=== PATIENT | male | born 1945 | race Caucasian/White ===

== ENCOUNTER 2018-07-10 11:44 | Outpatient (CLI) | payer MEDICARE, SELFPAY ==
[2018-07-10 12:47] LABS: Hemoglobin A1C 7.9 % (4.5-6.2)
== END 2018-07-10 12:04 ==
PROVIDERS: PCP Family Medicine; Visit Provider Family Medicine
DX: E11.9 Type 2 diabetes mellitus without complications (principal)
CPT/HCPCS: 36415; 83036

== ENCOUNTER 2018-07-19 13:37 | Emergency (ER) | payer MEDICARE, SELFPAY ==
--- NOTE | 2018-07-19 13:51 | NUR.NOTE ---
pt noticed redness in both eyes last night and states that they itch and burn. NOTE pt is poor historian
[2018-07-19 13:53] VITALS: BP 153/54; PULSE 79; RESP 16; TEMP 36.6; O2SAT 98
--- NOTE | 2018-07-19 17:00 | W.ED.GENAD ---
Discharge Plan Disposition Patient Disposition: HOME Discharge Details Chief Complaint: EyeProblem Clinical Impression: Conjunctivitis Primary Care Provider: Saeid Cotter ED Provider: Isabella [place] Home Meds and New Rx's Prescriptions: Continued ipratropium bromide 42 mcg (0.06 %) spray,non-aerosol 2 spray SERGIO TID PRN (Reason: postnasal drip) Qty: 15 RF: 2 multivitamin [Daily Multi-Vitamin] 1 EACH tablet 1 ea PO DAILY RF: 0 blood sugar diagnostic [Odeo Ultra Test] 1 EACH strip 1 ea Miscellaneous QID RF: 0 ascorbic acid (vitamin C) [Vitamin C] 500 MG tablet 500 mg PO DAILY RF: 0 simvastatin 20 MG tablet 20 mg PO DAILY RF: 0 ferrous sulfate 325 MG tablet 325 mg PO TID RF: 0 triamcinolone acetonide 60 ML lotion 1 lucita Topical QAM RF: 0 glucosamine sulfate 1,000 MG capsule 1,000 mg PO DAILY RF: 0 insulin syringe-needle U-100 [BD Insulin Syringe] 1 EACH syringe 1 unit Sub-Q DAILY RF: 0 pantoprazole [Protonix] [address] for susp in packet 40 mg PO DAILY RF: 0 lancing device with lancets [Odeo Delica Lanc Device] 1 EACH kit 1 ea Miscellaneous QID RF: 0 triamcinolone acetonide 15 GM cream Topical BID Qty: 30 RF: 3 furosemide [Lasix] 40 MG tablet 1 tab PO DAILY Qty: 90 RF: 4 lisinopril 10 MG tablet 10 mg PO DAILY RF: 0 aspirin 81 MG tablet,chewable 81 mg PO DAILY RF: 0 insulin glargine [Lantus U-100 Insulin] 100 UNIT/1 ML solution 60 - 70 unit SQ HS Qty: 3 RF: 4 metoprolol tartrate 25 MG tablet 0.5 tab PO BID Qty: 90 RF: 4 allopurinol 100 MG tablet 100 mg PO BID Qty: 180 RF: 4 cholecalciferol (vitamin D3) 1,000 UNIT tablet 1 tab PO DAILY RF: 0 Discharge Instructions Instructions: Tobramycin (Into the eye), Conjunctivitis (ED) Additional Instructions: Please return immediately to the emergency department if you develop any new or worsening symptoms or if you become otherwise concerned. It is extremely important that you make an appointment to be seen by your customer service correspondence clerk on Saturday in follow-up this visit. Referrals: Dionisio,Anthony, MD [ [facility] STAFF PHYSICIAN] - Saeid Cotter MD [Primary Care Provider] - Discharge Data Discharge Date/Time-TO BE ENTERED AT DEPARTURE: 07/19/18 18:01 Medical Decision Making Edward Enamorado is a 23-year-old man with history of multiple medical problems presenting to the emergency department with by lateral eye redness, burning, discharge without vision changes. On exam patient is well and nontoxic appearing. There is bilateral conjunctival injection, fall amount of yellow discharge bilaterally, pupils equal and reactive to light and accommodation, normal extraocular movements, normal periorbital exam. Concern for bacterial conjunctivitis. Patient has had bilateral lens replacement several years ago. Does not wear contact lenses. Plan for tobramycin, outpatient follow-up with ophthalmology. Exam/history is not consistent with glaucoma, endophthalmitis, sepsis, meningitis, other acute emergent life/vision threatening process. I had a lengthy discussion with patient regarding home care, return to emergency department precautions, and importance of outpatient follow-up on Saturday with his customer service correspondence clerk. He verbalizes understanding of the plan and is amenable. Medical Records Medical records reviewed: Yes I reviewed the patient's medical records. HPI General Mode of arrival: ambulatory. Date/Time Provider Initiated Documentation: 07/19/18 13:56. Limitations to Documentation: no limitations. Information obtained by: patient, family, RN notes reviewed and old records reviewed. HPI Narrative: Edward Enamorado is a 3-year-old man with history of hypertension, coronary artery disease, diabetes presenting to the emergency department with eye redness since yesterday. Patient reports that he noticed his eyes seemed red yesterday and quite watery. He has had continued discharge from both eyes since last night. He occasionally has burning and itching of the surface of his eyes, and feels as if he might have a foreign body in both eyes at times. Patient reports no deep eye pain or headache. Patient does not think that his vision has changed, although he typically wears glasses and does not have them with him currently. Patient denies any activity that would put him at risk for foreign body to the eye, and does not actually think that he has a foreign body as his eyes were red with discharge prior to that sensation beginning. Patient reports that he had both lenses replaced several years ago. He does not wear contacts. Related Data Home Medications Medication Instructions Recorded Confirmed ascorbic acid (vitamin C) [Vitamin 500 mg PO DAILY 09/30/12 07/21/16 C] blood sugar diagnostic [OneTouch strip 09/30/12 07/21/16 Ultra Test] ferrous sulfate 325 mg PO TID 09/30/12 07/21/16 glucosamine sulfate 1,000 mg PO DAILY 09/30/12 07/21/16 insulin syringe-needle U-100 [BD 09/30/12 07/21/16 Insulin Syringe] lancing device with lancets kit 09/30/12 07[facility] multivitamin [Daily Multi-Vitamin] 1 ea PO DAILY 09/30/12 07/21/16 pantoprazole [Protonix] 40 mg PO DAILY packet 09/30/12 03/12/15 simvastatin 20 mg PO DAILY tab-cap 09/30/12 07/21/16 triamcinolone acetonide 1 lucita TOPICAL QAM script 09/30/12 03/12/15 cholecalciferol (vitamin D3) 1 tab PO DAILY 01/19/14 07/21/16 triamcinolone acetonide 0 TOPICAL BID #30 g 09/26/15 furosemide [Lasix] 1 tab PO DAILY #90 tab 09/07/16 lisinopril 10 mg PO DAILY tab-cap 01/22/17 aspirin 81 mg PO DAILY tab-cap 05/23/17 insulin glargine [Lantus U-100 60 - 70 unit SQ HS #3 vial 08/16/17 Insulin] metoprolol tartrate 0.5 tab PO BID #90 tab-cap 08/20/17 allopurinol 100 mg PO BID #180 tab-cap 10/03/17 ipratropium bromide 42 mcg (0.06 2 spray SERGIO TID PRN #15 ml 07/10/18 07/10/18 %) nasal spray Previous Rx's Medication Instructions Recorded insulin glargine [Lantus U-100 60 - 70 unit SQ HS #3 vial 08/16/17 Insulin] metoprolol tartrate 0.5 tab PO BID #90 tab-cap 08/20/17 allopurinol 100 mg PO BID #180 tab-cap 10/03/17 ipratropium bromide 42 mcg (0.06 2 spray SERGIO TID PRN #15 ml 07/10/18 %) nasal spray Allergies Allergy/AdvReac Type Severity Reaction Status Date / Time No Known Drug Allergies Allergy Unverified 07/19/18 13:54 General Stated Complaint: EyeProblem NICK: 4 Review of Systems Review of Systems Constitutional: denies fevers Eyes: denies deep eye pain, vision changes, photophobia, reports superficial burning and itching of both eyes, discharge from both eyes ENT: denies facial pain, dental pain, sore throat Cardiovascular: denies chest pain Respiratory: denies SOB, cough GI: denies abdominal pain, vomiting, diarrhea : denies flank pain MSK: denies back pain, neck pain, arthralgias, myalgias Skin: denies rash Neuro: denies headaches, numbness, weakness PFSH Surgical History Extraction of cataract (01/05/11) PROCEDURES Family History Other Diabetes Essential hypertension Heart disease Social History Smoking/Tobacco Use Status: Former Tobacco Use Exam Narrative Exam Narrative: Constitutional: well and [id number], pleasant, conversing normally HENT: head atraumatic/normocephalic/normal inspection, mucous membranes moist, no facial edema Eyes: conjunctiva injected bilaterally, bilateral upper and lower lashes matted with crusting yellow discharge, PERRLA, EOMI, periorbital edema or tenderness, no periorbital skin changes Neck: no stridor, normal ROM, trachea midline Resp: normal work of breathing, LCTAB Cardio: normal rate, normal rhythm, no murmur appreciated Skin: warm, dry, normal color, no rash Neuro: alert, not altered, grossly non-focal, normal tone Psych: normal mood, normal affect, normal behavior Course Vital Signs Temperature 36.6 C 07/19/18 13:53 Pulse 79 07/19/18 13:53 Respiratory Rate 16 07/19/18 13:53 Blood Pressure 153/54 H 07/19/18 13:53 Pulse Oximetry 98 07/19/18 13:53 Temperature 36.6 C 07/19/18 13:53 Temperature Source Skin 07/19/18 13:53 Pulse 79 07/19/18 13:53 Respiratory Rate 16 07/19/18 13:53 Respiratory Effort 07/19/18 13:55 Blood Pressure 153/54 H 07/19/18 13:53 Blood Pressure Position Supine 07/19/18 13:53 Pulse Oximetry 98 07/19/18 13:53 Oxygen Delivery Method Room Air 07/19/18 13:53 Oxygen Flow Rate 0 07/19/18 13:53 Pain Level 3 07/19/18 13:53
--- NOTE | 2018-07-19 17:03 | ED.GENADUL_ITS ---
Discharge Plan Disposition Patient Disposition: HOME Discharge Details Chief Complaint: EyeProblem Clinical Impression: Conjunctivitis Primary Care Provider: Saeid Cotter ED Provider: [place] Home Meds and New Rx's Prescriptions: Continued ipratropium bromide 42 mcg (0.06 %) spray,non-aerosol 2 spray SERGIO TID PRN (Reason: postnasal drip) Qty: 15 RF: 2 multivitamin [Daily Multi-Vitamin] 1 EACH tablet 1 ea PO DAILY RF: 0 blood sugar diagnostic [Pegastech Ultra Test] 1 EACH strip 1 ea Miscellaneous QID RF: 0 ascorbic acid (vitamin C) [Vitamin C] 500 MG tablet 500 mg PO DAILY RF: 0 simvastatin 20 MG tablet 20 mg PO DAILY RF: 0 ferrous sulfate 325 MG tablet 325 mg PO TID RF: 0 triamcinolone acetonide 60 ML lotion 1 lucita Topical QAM RF: 0 glucosamine sulfate 1,000 MG capsule 1,000 mg PO DAILY RF: 0 insulin syringe-needle U-100 [BD Insulin Syringe] 1 EACH syringe 1 unit Sub-Q DAILY RF: 0 pantoprazole [Protonix] [address] for susp in packet 40 mg PO DAILY RF: 0 lancing device with lancets [Pegastech Delica Lanc Device] 1 EACH kit 1 ea Miscellaneous QID RF: 0 triamcinolone acetonide 15 GM cream Topical BID Qty: 30 RF: 3 furosemide [Lasix] 40 MG tablet 1 tab PO DAILY Qty: 90 RF: 4 lisinopril 10 MG tablet 10 mg PO DAILY RF: 0 aspirin 81 MG tablet,chewable 81 mg PO DAILY RF: 0 insulin glargine [Lantus U-100 Insulin] 100 UNIT/1 ML solution 60 - 70 unit SQ HS Qty: 3 RF: 4 metoprolol tartrate 25 MG tablet 0.5 tab PO BID Qty: 90 RF: 4 allopurinol 100 MG tablet 100 mg PO BID Qty: 180 RF: 4 cholecalciferol (vitamin D3) 1,000 UNIT tablet 1 tab PO DAILY RF: 0 Discharge Instructions Instructions: Tobramycin (Into the eye), Conjunctivitis (ED) Additional Instructions: Please return immediately to the emergency department if you develop any new or worsening symptoms or if you become otherwise concerned. It is extremely important that you make an appointment to be seen by your reservoir engineering manager on Saturday in follow-up this visit. Referrals: Dionisio,Anthony, MD [ [facility] STAFF PHYSICIAN] - Saeid Cotter MD [Primary Care Provider] - Discharge Data Discharge Date/Time-TO BE ENTERED AT DEPARTURE: 07/19/18 18:01 Medical Decision Making Edward Enamorado is a 23-year-old man with history of multiple medical problems presenting to the emergency department with by lateral eye redness, burning, discharge without vision changes. On exam patient is well and nontoxic appearing. There is bilateral conjunctival injection, fall amount of yellow discharge bilaterally, pupils equal and reactive to light and accommodation, normal extraocular movements, normal periorbital exam. Concern for bacterial conjunctivitis. Patient has had bilateral lens replacement several years ago. Does not wear contact lenses. Plan for tobramycin, outpatient follow-up with ophthalmology. Exam/history is not consistent with glaucoma, endophthalmitis, sepsis, meningitis, other acute emergent life/vision threatening process. I had a lengthy discussion with patient regarding home care, return to emergency department precautions, and importance of outpatient follow-up on Saturday with his reservoir engineering manager. He verbalizes understanding of the plan and is amenable. Medical Records Medical records reviewed: Yes I reviewed the patient's medical records. HPI General Mode of arrival: ambulatory . Date/Time Provider Initiated Documentation: 07/19/18 13:56 . Limitations to Documentation: no limitations . Information obtained by: patient, family, RN notes reviewed and old records reviewed . HPI Narrative: Edward Enamorado is a 3-year-old man with history of hypertension, coronary artery disease, diabetes presenting to the emergency department with eye redness since yesterday. Patient reports that he noticed his eyes seemed red yesterday and quite watery. He has had continued discharge from both eyes since last night. He occasionally has burning and itching of the surface of his eyes, and feels as if he might have a foreign body in both eyes at times. Patient reports no deep eye pain or headache. Patient does not think that his vision has changed, although he typically wears glasses and does not have them with him currently. Patient denies any activity that would put him at risk for foreign body to the eye, and does not actually think that he has a foreign body as his eyes were red with discharge prior to that sensation beginning. Patient reports that he had both lenses replaced several years ago. He does not wear contacts. Related Data Home Medications Medication Instructions Recorded Confirmed ascorbic acid (vitamin C) [Vitamin 500 mg PO DAILY 09/30/12 07/21/16 C] blood sugar diagnostic [OneTouch strip 09/30/12 07/21/16 Ultra Test] ferrous sulfate 325 mg PO TID 09/30/12 07/21/16 glucosamine sulfate 1,000 mg PO DAILY 09/30/12 07/21/16 insulin syringe-needle U-100 [BD 09/30/12 07/21/16 Insulin Syringe] lancing device with lancets kit 09/30/12 07/21/[facility] multivitamin [Daily Multi-Vitamin] 1 ea PO DAILY 09/30/12 07/21/16 pantoprazole [Protonix] 40 mg PO DAILY packet 09/30/12 03/12/15 simvastatin 20 mg PO DAILY tab-cap 09/30/12 07/21/16 triamcinolone acetonide 1 lucita TOPICAL QAM script 09/30/12 03/12/15 cholecalciferol (vitamin D3) 1 tab PO DAILY 01/19/14 07/21/16 triamcinolone acetonide 0 TOPICAL BID #30 g 09/26/15 furosemide [Lasix] 1 tab PO DAILY #90 tab 09/07/16 lisinopril 10 mg PO DAILY tab-cap 01/22/17 aspirin 81 mg PO DAILY tab-cap 05/23/17 insulin glargine [Lantus U-100 60 - 70 unit SQ HS #3 vial 08/16/17 Insulin] metoprolol tartrate 0.5 tab PO BID #90 tab-cap 08/20/17 allopurinol 100 mg PO BID #180 tab-cap 10/03/17 ipratropium bromide 42 mcg (0.06 2 spray SERGIO TID PRN #15 ml 07/10/18 07/10/18 %) nasal spray Previous Rx's Medication Instructions Recorded insulin glargine [Lantus U-100 60 - 70 unit SQ HS #3 vial 08/16/17 Insulin] metoprolol tartrate 0.5 tab PO BID #90 tab-cap 08/20/17 allopurinol 100 mg PO BID #180 tab-cap 10/03/17 ipratropium bromide 42 mcg (0.06 2 spray SERGIO TID PRN #15 ml 07/10/18 %) nasal spray Allergies Allergy/AdvReac Type Severity Reaction Status Date / Time No Known Drug Allergies Allergy Unverified 07/19/18 13:54 General Stated Complaint: EyeProblem NICK: 4 Review of Systems Review of Systems Constitutional: denies fevers Eyes: denies deep eye pain, vision changes, photophobia, reports superficial burning and itching of both eyes, discharge from both eyes ENT: denies facial pain, dental pain, sore throat Cardiovascular: denies chest pain Respiratory: denies SOB, cough GI: denies abdominal pain, vomiting, diarrhea : denies flank pain MSK: denies back pain, neck pain, arthralgias, myalgias Skin: denies rash Neuro: denies headaches, numbness, weakness PFSH Surgical History Extraction of cataract (01/05/11) PROCEDURES Family History Other Diabetes Essential hypertension Heart disease Social History Smoking/Tobacco Use Status: Former Tobacco Use Exam Narrative Exam Narrative: Constitutional: well and [id number], pleasant, conversing normally HENT: head atraumatic/normocephalic/normal inspection, mucous membranes moist, no facial edema Eyes: conjunctiva injected bilaterally, bilateral upper and lower lashes matted with crusting yellow discharge, PERRLA, EOMI, periorbital edema or tenderness, no periorbital skin changes Neck: no stridor, normal ROM, trachea midline Resp: normal work of breathing, LCTAB Cardio: normal rate, normal rhythm, no murmur appreciated Skin: warm, dry, normal color, no rash Neuro: alert, not altered, grossly non-focal, normal tone Psych: normal mood, normal affect, normal behavior Course Vital Signs Temperature 36.6 C 07/19/18 13:53 Pulse 79 07/19/18 13:53 Respiratory Rate 16 07/19/18 13:53 Blood Pressure 153/54 H 07/19/18 13:53 Pulse Oximetry 98 07/19/18 13:53 Temperature 36.6 C 07/19/18 13:53 Temperature Source Skin 07/19/18 13:53 Pulse 79 07/19/18 13:53 Respiratory Rate 16 07/19/18 13:53 Respiratory Effort 07/19/18 13:55 Blood Pressure 153/54 H 07/19/18 13:53 Blood Pressure Position Supine 07/19/18 13:53 Pulse Oximetry 98 07/19/18 13:53 Oxygen Delivery Method Room Air 07/19/18 13:53 Oxygen Flow Rate 0 07/19/18 13:53 Pain Level 3 07/19/18 13:53
== END 2018-07-19 18:01 | disposition home or self-care (01) ==
PROVIDERS: Emergency Provider Student in an Organized Health Care Education/Training Program; PCP Family Medicine
DX: H10.33 Unspecified acute conjunctivitis, bilateral (principal); J44.9 Chronic obstructive pulmonary disease, unspecified; Z87.891 Personal history of nicotine dependence; E11.9 Type 2 diabetes mellitus without complications; Z79.1 Long term (current) use of non-steroidal anti-inflammatories (NSAID); I10 Essential (primary) hypertension
CPT/HCPCS: 99283

== ENCOUNTER 2019-05-26 01:12 | Outpatient (CLI) | payer OTHER, SELFPAY ==
--- NOTE | 2019-05-26 10:35 | DI.US_ITS ---
APPROVED REPORT EXAM: Comprehensive 2D, Doppler, and color-flow Echocardiogram Patient Location: Out-Patient Rubbish Collection Supervisor: Shanika Cason RDCS (AE) Rhythm: NSR Indications: pulmonary htn i27.9 encounter for screening for malignant neoplasm of colon. z12.11 Conclusion Left Ventricle : The left ventricle is normal. Left ventricular systolic function is normal. Severe l eft ventricular hypertrophy. There is normal LV segmental wall motion. There is grade 2 diastolic dy sfunction. LVEF is estimated to be 55-60%. Right Ventricle : Right ventricle is mildly dilated. Right ventricular systolic function appears low normal. Atria : Left atrium is moderately dilated. Right atrium is moderately dilated. Aortic Valve : There is a bioprosthetic aortic valve which appears to be functioning normally (mean g radient 21 mmHg). There is no aortic valvular stenosis. No aortic regurgitation is present. Mitral Valve : Severe mitral annular calcification. Mitral valve leaflets are moderately thickened. M ild mitral regurgitation. Mild to moderate mitral stenosis (Mean gradient 13mmhg, MVA PHT 2.6cm2) Tricuspid Valve : Tricuspid valve is not well visualized. Moderate tricuspid regurgitation. Great Vessels : The IVC is normal is mildly dilated, but collapses >50% with inspiration. Estimated RVSP is 34-42 mmHg. Echocardiogram dated 07/23/2016: The patient's mitral stenosis appears slightly worsened. It is diffic ult to get an accurate mitral valve area with a concomitant bioprosthetic valve. Mean gradient is 13 mmHg at a heart rate of 80 bpm. Wall motion Left Ventricle The left ventricle is normal. Left ventricular systolic function is normal. Severe left ventricular h ypertrophy. There is normal LV segmental wall motion. There is grade 2 diastolic dysfunction. LVEF is estimated to be 55-60%. Right Ventricle Right ventricle is mildly dilated. Right ventricular systolic function appears low normal. Atria Left atrium is moderately dilated. Right atrium is moderately dilated. Aortic Valve There is a bioprosthetic aortic valve which appears to be functioning normally. There is no aortic va lvular stenosis. No aortic regurgitation is present. Mitral Valve Severe mitral annular calcification. Mitral valve leaflets are moderately thickened. Mild to moderate mitral stenosis (Mean gradient 13mmhg, MVA PHT 2.6cm2) Mild mitral regurgitation. Tricuspid Valve Tricuspid valve is not well visualized. Moderate tricuspid regurgitation. Pulmonic Valve Pulmonic valve is not well visualized. Great Vessels Not well visualized. The ascending aorta size is normal. The IVC is normal is mildly dilated, but col lapses >50% with inspiration. Estimated RVSP is 34-42 mmHg. Pericardium There is no pericardial effusion. 2D Dimensions IVSd 2.00 cm M: 0.6-1.2 LV EDV A2C 120.10 mL PWd 1.50 cm M: 0.6 - 1.2 LV EDV A4C 100.00 mL LVDd 4.80 cm M: 4.2 - 5.8 LA Volume Index A4C 53.58 mL/m2 LVDs 3.65 cm M: 2.5 - 4.0 LA Area A4C 31.26 cm2 RA Area A4C 24.59 cm2 EF AP4 53.80 % LVOT 1.85 cm (M/F) 1.5-2.5 EF AP2 55.87 % Ascending Aorta 3.39 cm M: 2.6 - 3.4 EF BP 55.16 % LVEF (Teich) 47.52 % LVEF (Mahmood's) 55.16 % M: 52 - 72 LV Volume 81.23 mL M: 62 - 150 LV Volume Index 36.10 mL/m2 M: 34 - 74 FS 23.85 % LV Diastology MED E' 0.08 (>0.07 m/s) LV E/e MED 32.65 (<14) LAT E' 0.08 (>0.1 m/s) LV E/e LAT 34.00 (<14) Aortic Valve LVOT Area 2.75 cm2 LVOT Peak Shlomo. 1.30 m/s LVOT Mean Shlomo. 1.04 m/s LVOT Peak Gr. 7.25 mmHg PHIL Vmax Index 0.57 cm2/m2 LVOT Mean Gr. 4.60 mmHg LVOT VTI 0.30 m PHIL Mean Shlomo. Index 0.58 cm2/m2 AoV Peak Shlomo. 2.88 (0.5-1.3 m/s) AoV Mean Shlomo. 2.19 m/s AO Peak GR. 33.28 mmHg AO Mean GR. 21.19 (<5 mmHg) VTI Ratio 0.50 PHIL (VTI) 1.38 (2.5-4.5 cm2) PHIL (VTI) Index 0.61 cm/m2 Mitral Valve MV E Max Shlomo. 2.69 (0.4-1.3 m/s) MVA VTI 2.69 (4.0-6.0 cm2) MV Peak Gr. 22.64 mmHg MV Mean Gr. 12.84 (<2mmHg) MVA PHT 2.56 cm2 Tricuspid Valve TR P. Velocity 2.92 m/s TV Regurg Vmax 2.92 m/s RAP Estimate 8.00 mmHg RVSP 42.00 mmHg TR P. Gradient 34.00 mmHg
== END 2019-05-26 01:32 ==
PROVIDERS: PCP Family Medicine; Visit Provider Family Medicine
DX: I27.0 Primary pulmonary hypertension (principal); I50.1 Left ventricular failure, unspecified; I51.7 Cardiomegaly; I34.2 Nonrheumatic mitral (valve) stenosis; Z95.2 Presence of prosthetic heart valve
CPT/HCPCS: 93306

== ENCOUNTER → 2019-06-18 10:33 | Outpatient (BNVA) | payer MEDICARE, SELFPAY | PROVIDERS: PCP Family Medicine; Referring Provider Family Medicine; Visit Provider Internal Medicine Cardiovascular Disease | DX: I27.9 Pulmonary heart disease, unspecified (principal); Z95.2 Presence of prosthetic heart valve; I10 Essential (primary) hypertension; I51.89 Other ill-defined heart diseases; E78.5 Hyperlipidemia, unspecified | CPT/HCPCS: 99204; 99215 ==

== ENCOUNTER → 2019-12-15 10:45 | Outpatient (BNVA) | payer MEDICARE, SELFPAY | PROVIDERS: PCP Family Medicine; Referring Provider Family Medicine; Visit Provider Internal Medicine Cardiovascular Disease | DX: G47.33 Obstructive sleep apnea (adult) (pediatric) (principal); Z95.2 Presence of prosthetic heart valve; I48.92 Unspecified atrial flutter; I27.9 Pulmonary heart disease, unspecified; I12.9 Hypertensive chronic kidney disease with stage 1 through stage 4 chronic kidney disease, or unspecified chronic kidney disease; N18.3 Chronic kidney disease, stage 3 (moderate) | CPT/HCPCS: 99214 ==

== ENCOUNTER → 2020-06-07 09:21 | Outpatient (BNVA) | payer MEDICARE, SELFPAY | PROVIDERS: PCP Nurse Practitioner; Referring Provider Family Medicine; Visit Provider Internal Medicine Cardiovascular Disease | DX: I48.0 Paroxysmal atrial fibrillation (principal); E11.22 Type 2 diabetes mellitus with diabetic chronic kidney disease; N18.30 Chronic kidney disease, stage 3 unspecified; Z79.4 Long term (current) use of insulin; I65.29 Occlusion and stenosis of unspecified carotid artery; I12.9 Hypertensive chronic kidney disease with stage 1 through stage 4 chronic kidney disease, or unspecified chronic kidney disease; Z01.810 Encounter for preprocedural cardiovascular examination; I08.0 Rheumatic disorders of both mitral and aortic valves | CPT/HCPCS: 99214 ==

== ENCOUNTER → 2020-06-28 13:52 | Outpatient (BNVA) | payer MEDICARE, SELFPAY | PROVIDERS: PCP Nurse Practitioner; Referring Provider Nurse Practitioner; Visit Provider Surgery | DX: D50.9 Iron deficiency anemia, unspecified (principal); E11.22 Type 2 diabetes mellitus with diabetic chronic kidney disease; N18.30 Chronic kidney disease, stage 3 unspecified; I12.9 Hypertensive chronic kidney disease with stage 1 through stage 4 chronic kidney disease, or unspecified chronic kidney disease | CPT/HCPCS: 99203; 99215 ==

== ENCOUNTER 2020-10-04 22:29 | Inpatient (IN) | payer OTHER, SELFPAY ==
[2020-10-04 22:35] VITALS: BP 135/64; PULSE 82; RESP 18; TEMP 36.8; O2SAT 100
--- NOTE | 2020-10-04 23:00 | DI.CT_ITS ---
EXAM: CT ABDOMEN PELVIS WO CLINICAL HISTORY: diarrhea for 3 mths, with bleeding, concern for CA. TECHNIQUE: Imaging Protocol: Axial computed tomography images with coronal and sagittal reformatted images were created and reviewed CONTRAST MATERIAL: Intravenous: none Oral: None COMPARISON: CT CHEST ABD PELVIS WO CONTRAST from 07/21/2016 FINDINGS: VISUALIZED LUNG BASES: There is stranding and some infiltrate in the right lung base which was not ev ident in 2017. Visualized left lung bases relatively clear.. ABDOMEN: There is no ascites. LIVER: There are no obvious focal hepatic lesions evident of this noninfused study. Pneumobilia is n oted in the left hepatic lobe. GALLBLADDER/BILIARY: Gallbladder surgically absent. CBD diameter upper normal. PANCREAS: No evidence of pancreatic mass nor dilatation of the pancreatic duct. SPLEEN: Spleen size is normal. Small hypodensity in the spleen is unchanged from 2017 either represe nts a small cyst or hemangioma. ADRENALS: There are no significant adrenal masses. KIDNEYS:No cysts evident. No solid renal masses. No calculi nor hydronephrosis. . ABDOMINAL AORTA: Abdominal aorta is not enlarged. LYMPH NODES: There is no retroperitoneal nor paraaortic adenopathy. ABDOMINAL WALL/GI: No evidence of significant anterior abdominal wall hernia. PELVIS: LYMPH NODES: There is no intrapelvic nor inguinal adenopathy. GI: There is a long area of narrowing in the sigmoid approximately 7-8 cm length with dilatation of t he colon above this level consistent with partial obstruction. This is either related to neoplasm or sequelae of the extensive sigmoid diverticulosis which was evident on the 2017 study. Possibly a co mbination of both.There is no gas in the adjacent nondistended urinary bladder to suggest fistulous c ommunication.The appendix is not easily identified. No obvious appendicitis. URINARY BLADDER: No calculi nor obvious masses evident REPRODUCTIVE: Prostate slightly enlarged. OSSEOUS: No significant osseous lesions. IMPRESSION: 1. The main finding here is in the sigmoid where there is a 7-8 cm segment of circumferential wall th ickening which is associated with incomplete obstruction at this level. First consideration is to ru le out neoplasm at this level. Other considerations is sequelae of chronic severe diverticulosis at this level. Possibly combination of both. Appropriate referral recommended for colonoscopy. 2. Gallbladder surgically absent. Pneumobilia is evident in the left hepatic lobe. Correlation with any prior ERCP recommended. 3. Right lung base findings which were not evident on the 2017 study. RADIATION DOSE DELIVERED: 1,016.67mGy.cm Total DLP DATA REPOSITORY: All CT scans at this facility are submitted to the National Radiology Data Registry (NRDR) Dose Index Registry (DIR) with the [employer] ([employer]). RADIATION OPTIMIZATION: All CT scans at this facility use at least one of these dose optimization te chniques: automated exposure control; mA and/or kV adjustment per patient size (includes targeted exa ms where dose is matched to clinical indication); or iterative reconstruction.
[2020-10-04 23:16] LABS: Abs Immature Grans 0.05 10^3/uL (0.0-0.06); Absolute Basophil Count 0.04 10^3/uL (0.0-0.2); Absolute Eosinophil Count 0.95 10^3/uL (0.0-0.7); Absolute Lymphocyte Count 1.13 10^3/uL (1.2-3.4); Absolute Monocyte Count 0.62 10^3/uL (0.1-0.8); Absolute Neutrophil Count 6.21 10^3/uL (1.2-6.7); Basophils % 0.4; Eosinophils % 10.6; HCT 30.8 % (40.0-50.0); HGB 9.8 g/dL (13.5-17.5); Immature Grans % 0.6; Lymphocytes % 12.6; MCH 30.3 pg (27.0-33.0); MCHC 31.8 % (32.0-36.0); MCV 95.4 fL (80-95); MPV 11.7 fL (8.0-11.0); Monocytes % 6.9; Neutrophils % 68.9; Nucleated RBC 0 %; Platelet Count 162 10^3/uL (130-400); RBC 3.23 10^6/uL (4.36-5.78); RDW 15.7 % (11.8-14.1); RDW-SD 54.4 fL
[2020-10-04] MEDS: Normal Saline 500 ML IV (23:30)
[2020-10-04 23:32] LABS: ALT 26 U/L (16-63); AST 19 U/L (15-37); Albumin 3.3 g/dL (3.4-5.0); Alkaline Phosphatase 99 U/L (46-116); Anion Gap 11.3 mmol/L (3-11); Bilirubin, Total 0.3 mg/dL (0.2-1.0); CO2 20.7 mmol/L (21.0-32.0); Calcium 9.1 mg/dL (8.5-10.1); Chloride 108 mmol/L (98-107); Estimated GFR 20.45 (mL/min/1.73m2); Glucose 234 mg/dL (74-106); Potassium 5.4 mmol/L (3.5-5.1); Sodium 140 mmol/L (136-145); Total Protein 7.6 g/dL (6.4-8.2)
[2020-10-04 23:33] LABS: Iron 33 ug/dL (65-175); Total Iron Binding Capacity 241 ug/dL (250-450); Transferrin Sat 14 % (20-55)
[2020-10-04 23:34] LABS: BUN 97 mg/dL (7-18)
--- NOTE | 2020-10-04 23:57 | DI.VRAD_ITS ---
PROCEDURE INFORMATION: Exam: CT Abdomen And Pelvis Without Contrast Exam date and time: 10/04/2020 11:22 PM Age: 75 years old Clinical indication: Other: Diarrhea for 3 mths, with bleeding, concern for CA TECHNIQUE: Imaging protocol: Computed tomography of the abdomen and pelvis without contrast. Total images: 1371 Radiation optimization: All CT scans at this facility use at least one of these dose optimization techniques: automated exposure control; mA and/or kV adjustment per patient size (includes targeted exams where dose is matched to clinical indication); or iterative reconstruction. COMPARISON: CT CHEST ABD PELVIS WO CONTRAST 07/21/2016 6:06 PM FINDINGS: Lungs: Bandlike atelectasis or scarring in the right lung base with posterior basilar pleural thickening and trace pleural fluid. Heart: Mild cardiomegaly. Severe calcification of the mitral annulus noted. Prior median sternotomy. Mediastinal space: Small hiatal hernia. The mid and distal stomach are grossly normal. Liver: Normal contour. No mass lesions. No intrahepatic biliary ductal dilatation. Gallbladder and bile ducts: Cholecystectomy. Nondilated bile ducts for age. Pancreas: Moderate pancreatic atrophy without acute abnormality. No pancreatic ductal dilatation. Spleen: 4 mm probable cyst in the central liver is unchanged from 2017 and does not require further evaluation. The spleen is otherwise unremarkable. Adrenal glands: Normal. No adrenal mass. Kidneys and ureters: Mild bilateral symmetrical perinephric stranding, nonspecific. This is unchanged and may relate to chronic perirenal scarring. Mild bilateral renal cortical thinning suggesting chronic renal disease. Extrarenal pelvis configuration noted bilaterally. No hydronephrosis or hydroureter. No urinary tract stones are identified. Stomach and bowel: The small bowel is nondilated with no gross abnormality. Large amount of stool throughout the colon, with a 6 cm segment of wall thickening in the mid to proximal sigmoid colon with obliteration of the colonic lumen currently, concerning for obstructive colonic neoplasm. There is gas and stool present distal to the segment, favoring incomplete obstruction at this point. GI consultation and colonoscopy evaluation recommended. No evidence of perforation or abscess. There is mild sigmoid diverticulosis without focal changes of diverticulitis. There is mild colonic wall thickening and adjacent stranding just proximal to the colonic mass which may indicate an element of colitis. Appendix: The appendix is normal in caliber and demonstrates no evidence of appendicitis. Intraperitoneal space: No free fluid or air. Vasculature: Moderate atherosclerotic aortoiliac calcification without aneurysm. Lymph nodes: No adenopathy. Urinary bladder: Unremarkable as visualized. Reproductive: Unremarkable as visualized. Bones/joints: No acute osseous abnormalities. Osteopenia. Soft tissues: Unremarkable. IMPRESSION: 1. There is a 6 cm segment of masslike colonic wall thickening in the mid to proximal sigmoid colon highly suspicious for colon carcinoma. Wall thickening related to colitis in this segment is considered less likely. No evidence of perforation or abscess. GI consultation and colonoscopy evaluation recommended. 2. Large amount of stool distributed throughout the colon proximal to the masslike segment concerning for partial colonic obstruction. 3. Mild wall thickening and adjacent stranding involving the descending colon proximal to the mass may represent an element of colitis. 4. Mild distal colonic diverticulosis without focal changes of diverticulitis. 5. Additional non-emergent findings detailed above. Dictated and Authenticated by: Saeid Russell MD. Ordering:ALEX Degroot MD
[2020-10-05] VITALS (12 sets, daily range): BP systolic 101–131; BP diastolic 46–70; PULSE 74–115; RESP 16–24; TEMP 36.2–37; O2SAT 97–100
--- NOTE | 2020-10-05 | DI.US_ITS ---
EXAM: US RENAL CLINICAL HISTORY: FLOR TECHNIQUE: Ultrasound of both kidneys performed using standard protocol. COMPARISON: No exams were available for comparison FINDINGS: RIGHT KIDNEY: Measures 11.5 cm in length. No cysts evident. Mild uniform cortical thinning and slightly decreased c orticomedullary differentiation. No solid renal masses. No intrarenal calculi nor hydronephrosis. LEFT KIDNEY: Measures 11.1 cm in length. No cysts evident. There is also mild uniform cortical thinning and sligh tly decreased corticomedullary differentiation, similar to the opposite side. No intrarenal calculi nor hydonephrosis. URINARY BLADDER: Prevoid volume is 146 cc Postvoid volume is 0 cc Bladder wall is diffusely thickened. Measurement is 7 millimeters. No evidence of obvious focal bladder mass nor diverticuli. Ureterovesical jets: Not identified. IMPRESSION: 1. Both kidneys exhibit normal size but exhibit mild uniform cortical thinning. Mild decreased moe icomedullary differentiation. However, there are no focal abnormalities evident in the kidneys. No cysts nor masses nor calculi nor hydronephrosis. 2. There appears to be uniform thickening of the bladder wall, possibly related to chronic inflammat ory change. DATA REPOSITORY:
--- NOTE | 2020-10-05 00:15 | RT.EKG_ITS ---
APPROVED REPORT Exam: Resting ECG Patient Location: E HR:86 bpm ECG Measurements Heart Rate 86 AXIS ND 289 P -19 QRSd 109 QRS 38 QT 384 T 25 QTc 460 Conclusion Sinus rhythm...normal P axis, V-rate 60- 99 Atrial premature complex...SV complex w/ short R-R interval Prolonged ND interval...ND >220, V-rate 50- 90 Physician: peaking of t's in V2 and V3. No STEMI
--- NOTE | 2020-10-05 00:18 | ED.GENADUL_ITS ---
Discharge Plan Disposition Patient Disposition: [facility] INPATIENT Condition: Improving Discharge Details Chief Complaint: GenMedical Clinical Impression: Hyperkalemia, diminished renal excretion, Anemia, Colonic mass Admit Date/Time: 10/05/20 00:29 Admit Provider: Saeid Ordoñez Attending Provider: Saeid Ordoñez Primary Care Provider: Kemi Lang ED Provider: Zane Pederson Discharge Data Discharge Date/Time-TO BE ENTERED AT DEPARTURE: 10/05/20 01:40 Medical Decision Making 75-year-old male with a past medical history of atrial fib on aspirin, previous cardiac valve repair, diabetes, COPD, who presents today for lab abnormalities. Patient states that for the last 4 months he has had intermittent abdominal pain and bloating, bright red blood when he has bowel movements, notably loose stool in general, and a 20 to 30 pound weight loss. He has not had a colonoscopy recently. He denies any fever or chills. No recent antibiotics. He is being worked up on an outpatient for concern for abdominal malignancy by his PCP, and initial screening laboratory work-up showed notable abnormalities, which warranted evaluation in the ED. Potassium was elevated, creatinine and BUN were elevated. Currently the patient states that he feels fine, denies any significant complaints aside from mild abdominal discomfort. No other complaints at this time. Daughter is at bedside. Work-up shows mild anemia, BUN of 97, creatinine around 3, potassium is elevated at 5.4. EKG shows mild peaking of T waves in V2 and V3. CT scan shows 6 cm segment of masslike colonic wall thickening, certainly concerning for malignan cy. Patient remained stable, no white count. No fever. Fluid the patient's electrolyte abnormalities, renal dysfunction, and no CT findings I do feel that admission is indicated for management of the acute components and we can get the outpatient follow-up started for his new malignancy. We'll give calcium, insulin, glucose, and albuterol to help with the potassium. We'll hold off on the pro GI kinetics for potassium secondary to the diarrhea that he is already having in conjunction with the atypical findings on CAT scan. Discussed the case with Dr. Decker, he agrees with the assessment and plan. I will place bridging orders on his behalf. I have extensively reviewed the treatment plan with the patient. I have addressed all patient concerns at this time. I have also discussed the plan with the admitting physician and they agree with the current assessment and plan and have agreed to assume responsibility for the patient. All parties demonstrate verbal understanding and agreement with our assessment and plan at this time. The documentation in this chart was dictated using [employer] dictation software. Please excuse any dictation errors. IMPRESSION: 1. There is a 6 cm segment of masslike colonic wall thickening in the mid to proximal sigmoid colon highly suspicious for colon carcinoma. Wall thickening related to colitis in this segment is considered less likely. No evidence of perforation or abscess. GI consultation and colonoscopy evaluation recommended. 2. Large amount of stool distributed throughout the colon proximal to the masslike segment concerning for partial colonic obstruction. 3. Mild wall thickening and adjacent stranding involving the descending colon proximal to the mass may represent an element of colitis. 4. Mild distal colonic diverticulosis without focal changes of diverticulitis. 5. Additional non-emergent findings detailed above. Thank you for allowing us to participate in the care of your patient. Dictated and Authenticated by: Saeid Russell MD 10/04/2020 11:57 PM Eastern Time ([place] & [place]) HPI General Date/Time Provider Initiated Documentation: 10/04/20 22:34 . HPI Narrative: 75-year-old male with a past medical history of atrial fib on aspirin, previous cardiac valve repair, diabetes, COPD, who presents today for lab abnormalities. Patient states that for the last 4 months he has had intermittent abdominal pain and bloating, bright red blood when he has bowel movements, notably loose stool in general, and a 20 to 30 pound weight loss. He has not had a colonoscopy recently. He denies any fever or chills. No recent antibiotics. He is being worked up on an outpatient for concern for abdominal malignancy by his PCP, and initial screening laboratory work-up showed notable abnormalities, which warranted evaluation in the ED. Potassium was elevated, creatinine and BUN were elevated. Currently the patient states that he feels fine, denies any significant complaints aside from mild abdominal discomfort. No other complaints at this time. Daughter is at bedside. Related Data Home Medications Medication Instructions Recorded Confirmed BD Insulin Syringe 09/30/12 06/28/20 OneTouch Ultra Test strip 09/30/12 06/28/20 ascorbic acid (vitamin C) [Vitamin 500 mg PO DAILY 09/30/12 10/04/20 C] glucosamine sulfate 1,000 mg PO DAILY 09/30/12 10/04/20 lancing device with lancets kit 09/30/12 06/28/20 [OneTouch Delica Lanc Device] multivitamin [Daily Multi-Vitamin] 1 ea PO DAILY 09/30/12 10/04/20 pantoprazole [Protonix] 40 mg PO DAILY packet 09/30/12 10/04/20 simvastatin 20 mg PO DAILY tab-cap 09/30/12 10/04/20 cholecalciferol (vitamin D3) 1 tab PO DAILY 01/19/14 10/04/20 aspirin 81 mg PO DAILY tab-cap 05/23/17 10/04/20 Lantus U-100 Insulin 60 - 70 unit SQ HS #3 vial 08/16/17 10/04/20 allopurinol 100 mg PO BID #180 tab-cap 10/03/17 10/04/20 ipratropium bromide 42 mcg (0.06 2 spray SERGIO TID PRN #15 ml 07/10/18 10/04/20 %) nasal spray acetaminophen 650 mg 650 mg PO Q12H PRN 01/26/19 06/28/20 tablet,extended release colloidal oatmeal 1 % topical cream % TP PRN 01/26/19 05/20/20 diclofenac sodium 1 % topical gel 2 gm TP QID PRN 01/26/19 10/04/20 metoprolol tartrate 25 mg tablet 12.5 mg PO BID #90 tab-cap 11/03/19 10/04/20 lisinopril 5 mg tablet 5 mg PO DAILY 11/26/19 10/04/20 furosemide 40 mg tablet 40 mg PO DAILY #90 tab 01/15/20 10/04/20 bisacodyl 5 mg tablet,delayed 5 mg PO ONCE #4 tab 10/04/20 release polyethylene glycol 3350 17 17 g PO ONCE #238 g 10/04/20 gram/dose oral powder triamcinolone acetonide 1 applic TOPICAL BID PRN 10/04/20 10/04/20 Previous Rx's Medication Instructions Recorded Lantus U-100 Insulin 60 - 70 unit SQ HS #3 vial 08/16/17 allopurinol 100 mg PO BID #180 tab-cap 10/03/17 ipratropium bromide 42 mcg (0.06 2 spray SERGIO TID PRN #15 ml 07/10/18 %) nasal spray metoprolol tartrate 25 mg tablet 12.5 mg PO BID #90 tab-cap 11/03/19 furosemide 40 mg tablet 40 mg PO DAILY #90 tab 01/15/20 bisacodyl 5 mg tablet,delayed 5 mg PO ONCE #4 tab 10/04/20 release polyethylene glycol 3350 17 17 g PO ONCE #238 g 10/04/20 gram/dose oral powder Allergies Allergy/AdvReac Type Severity Reaction Status Date / Time No Known Drug Allergies Allergy Verified 10/04/20 14:15 General Stated Complaint: GenMedical NICK: 4 Review of Systems All systems reviewed & are unremarkable except as noted in HPI and below PFSH Medical History Abnormal auditory perception (10/19/13) Acute renal failure Atrial flutter (02/14/10) Background retinopathy (04/27/15) 04/26/15; [facility]; MILD 05/01/16; MILD; [facility] Carotid artery stenosis Choledocholithiasis with acute cholecystitis with obstruction s/p cholecystectomy Chronic pulmonary heart disease (02/14/10) Pulmonary Hypertension Colon cancer screening Degeneration of cervical intervertebral disc Depressive disorder Deviated nasal septum (02/22/14) Diabetes type 2, controlled Diastolic dysfunction Epistaxis, recurrent Essential hypertension (04/01/13) Gastroesophageal reflux disease Generalized osteoarthrosis Gynecomastia (11/01/16) History of mitral valve replacement Hyperkalemia, diminished renal excretion Obstructive jaundice Obstructive sleep apnea Retinal detachment O.D. 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-[facility] Sensory hearing loss, bilateral (10/19/13) Stage 3 chronic kidney disease Venous insufficiency (11/01/16) Surgical History Extraction of cataract (01/05/11) H/O mitral valve repair (~2013) 2013 History of cataract removal with insertion of prosthetic lens PROCEDURES REPLACE AORTIC VALVE NEC, 2006 REPLACE MITRAL VALVE NEC, 2007 S/P ERCP (~08/2016) S/P laparoscopic cholecystectomy (~08/2016) [facility] Status post aortic valve replacement (~2013) porcine valve Family History Other Diabetes Essential hypertension Heart disease Social History Smoking/Tobacco Use Status: Former Tobacco Use tobacco type: cigarettes Quit Date: 08/08/05 Smoking risk assessment performed?: Yes Alcohol Intake: current Alcohol Intake frequency: holidays/special occasions only Drug use: Never Current gender identity: male Do you feel safe at home: Yes Do you feel safe in your relationship?: Yes Exam Narrative Exam Narrative: 1.Const: Well-nourished, Well-developed, appearing stated age 2.Eyes: PERRL, no conjunctival injection, and symmetrical lids. 3.ENT: Atraumatic external nose and ears. Moist MM. Neck: Symmetric, trachea midline, No thyromegaly. 4.CVS: +S1/S2, No murmurs or gallops. Peripheral pulses 2+ and equal in all extremities. Brisk capillary refill in all extremities. 5.RESP: Unlabored respiratory effort. Clear to auscultation bilaterally. No wheezes rales or rhonchi 6.GI: Soft, Nontender, minimally enlarged, No hepatosplenomegaly. No guarding or rebound. 7.MSK: Normocephalic/Atraumatic, Extremities w/o deformity or ttp No cyanosis or clubbing, Normal movement of all extremities 8.Skin: Warm, Dry. No rashes or lesions. 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 Sensation grossly intact, no focal neurologic deficits. 10.Psych: (AAO) x3. Appropriate mood and affect Course Vital Signs Vital signs: Vital Signs Temperature 36.8 C 10/04/20 22:35 Pulse 82 10/04/20 22:35 Respiratory Rate 18 10/04/20 22:35 Blood Pressure 135/64 10/04/20 22:35 Pulse Oximetry 100 10/04/20 22:35 Temperature 36.8 C 10/04/20 22:35 Temperature Source Skin 10/04/20 22:35 Pulse 82 10/04/20 22:35 Respiratory Rate 18 10/04/20 22:35 Respiratory Effort Non-Labored 10/04/20 23:13 Respiratory Depth Normal 10/04/20 23:13 Respiratory Pattern Normal 10/04/20 23:13 Blood Pressure 135/64 10/04/20 22:35 Blood Pressure Position Sitting 10/04/20 22:35 Pulse Oximetry 100 10/04/20 22:35 Oxygen Delivery Method Room Air 10/04/20 22:35 Oxygen Flow Rate 0 10/04/20 22:35 Lab/Test Results Lab/Test Results: Laboratory Tests Range/Units 10/04/20 10/04/20 10/04/20 23:00 23:00 23:00 WBC (4.4-10.8) 10^3/uL 9.00 RBC (4.36-5.78) 10^6/uL 3.23 L Hgb (13.5-17.5) g/dL 9.8 L Hct (40.0-50.0) % 30.8 L MCV (80-95) fL 95.4 H MCH (27.0-33.0) pg 30.3 MCHC (32.0-36.0) % 31.8 L RDW (11.8-14.1) % 15.7 H Plt Count (130-400) 10^3/uL 162 MPV (8.0-11.0) fL 11.7 H Immature Gran % 0.6 Neutrophils % 68.9 Lymphocytes % 12.6 Monocytes % 6.9 Eosinophils % 10.6 Basophils % 0.4 Nucleated RBC % % 0 Absolute Neutrophils (1.2-6.7) 10^3/uL 6.21 Absolute Lymphocytes (1.2-3.4) 10^3/uL 1.13 L Absolute Monocytes (0.1-0.8) 10^3/uL 0.62 Absolute Eosinophils (0.0-0.7) 10^3/uL 0.95 H Absolute Basophils (0.0-0.2) 10^3/uL 0.04 Sodium (136-145) mmol/L 140 Potassium (3.5-5.1) mmol/L 5.4 H Chloride (98-107) mmol/L 108 H Carbon Dioxide (21.0-32.0) mmol/L 20.7 L Anion Gap (3-11) mmol/L 11.3 H BUN (7-18) mg/dL 97 H* Creatinine (0.70-1.30) mg/dL 3.0 H Estimated GFR/1.73 m2 (mL/min/1.73m2) 20.45 Glucose (74-106) mg/dL 234 H D Calcium (8.5-10.1) mg/dL 9.1 Iron (65-175) ug/dL 33 L TIBC (250-450) ug/dL 241 L Transferrin % Sat (20-55) % 14 L Total Bilirubin (0.2-1.0) mg/dL 0.3 AST (15-37) U/L 19 ALT (16-63) U/L 26 Alkaline Phosphatase (46-116) U/L 99 Total Protein (6.4-8.2) g/dL 7.6 Albumin (3.4-5.0) g/dL 3.3 L
[2020-10-05 00:45] LABS: Source Nasal/Nares
[2020-10-05 00:47] LABS: Bilirubin Negative (Negative); Blood Negative (Negative); Clarity Clear (Clear); Glucose Negative (Negative); Ketones Negative (Negative); Leukocyte Esterase Negative (Negative); Nitrite Negative (Negative); Urobilinogen 0.2 EU/dL (Up TO 0.2); pH 5.5 (5-8)
[2020-10-05] MEDS: Albuterol 2.5 MG/3 ML INH SOLN VIAL 7.5 MG UPD (00:59)
[2020-10-05] MEDS: Insulin REGULAR-Human 100 UNITS/ML UNIT SC (01:00)
[2020-10-05] MEDS: DEXTROSE 5%-0.9% SALINE 1,000 ML 150 ML IV (01:00)
[2020-10-05] MEDS: Normal Saline Flush 10 ML SYR IVP ×3 (03:24→18:41)
--- NOTE | 2020-10-05 06:49 | HPE_ITS ---
Date of service: 10/05/20 Time of Service: 05:49 Assessment and Plan Assessment and plan (1) Hyperkalemia, diminished renal excretion: Status: Acute Assessment and plan: Not dramatically high, though acute and EKG showing some peaked Ts. Did not come down much with some fluids overnight, I agree with starting Lokelma even with the current GI symptoms. Holding lisinopril. Continue furosemide. patient monitor. (2) Colonic mass: Status: Acute Assessment and plan: Likely cause of GI bleed. Patient understands this is likely cancer. Surgery consulted to help coordinate plan. (3) Diastolic dysfunction: Status: Acute Assessment and plan: Patient's cardiac history of bioprosthetic aortic and mitral valves noted. Has h/o diastolic dysfunction and right heart failure. See Dr. Knott's note from 06/05, he has been stable. He is not currently in CHF, will monitor with fluids. (4) Essential hypertension: Status: Acute Assessment and plan: continue metoprolol, holding lisinopril 5mg. Follow. (5) Atrial flutter: Status: Acute Assessment and plan: H/o flutter, paroxysmal Afib per cardiology. Only on ASA despite high [id number]. On metoprolol. Holding blood thinners for now, but consider anticoagulation after GI bleed resolves. (6) Diabetes type 2, controlled: Status: Acute Assessment and plan: A1c was well controlled at 7.2% last fall, repeat today. Continue outpatient basal insulin, add bolus per sliding scale. Qualifiers: Diabetes mellitus intermodal truck driver insulin use: with intermodal truck driver use Diabetes mellitus complication status: without complication Qualified Code(s): E11.9 - Type 2 diabetes mellitus without complications; Z79.4 - superintendent terminal (current) use of insulin (7) Stage 3 chronic kidney disease: Status: Acute Assessment and plan: Cr above baseline with elevated BUN. He may have some pre-renal with diarrhea. Gentle hydration and follow. No signs of bladder obstruction on CT. (8) Anemia: Status: Acute Assessment and plan: A/w GI blood loss, but also chronic which likely suggests CKD is major contributor. His iron is low, supplument on discharge. Qualifiers: Anemia type: iron deficiency Iron deficiency anemia type: unspecified iron deficiency Qualified Code(s): D50.9 - Iron deficiency anemia, unspecified (9) DVT prophylaxis: Status: Acute Assessment and plan: SCDs given GI bleed. (10) Discharge planning issues: Status: Acute Assessment and plan: Home when K+ and renal fucntion stable with plan for likely colon cancer. History of Present Illness History of Present Illness Chief Complaint: diarrhea, abnormal labs Narrative: 75 yo M with h/o bioprosthetic aortic and mitral valves, diastolic dysfunction, CKD, pAfib just on ASA, who has had more than 4 months of loose and intermittently bloody stools associated with weight loss sent to ED by primary care Dr. Hannah due to lab abnormalities including worsening creatinine and K+ newly elevated to 5.4. He has no acute complaints other than some crampy lower abdominal discomfort that is constant and the loose stools that are soft to watery and intermittently bloody. He has been eating, but loosing 20-30lbs over this time. He has stayed active and walking and living independently. He has felt some fatigue, but no chest pain or palpitations or shortness of breath. Review of history reveals he had a positive FIT test in 2018 and had noted anemia for a year, but never had a colonoscopy. He did see Dr. Phoenix to discuss colonoscopy in June, with plan to medically clear with anesthesia before colonoscopy at [facility] vs [place], [facility] [place] [facility]. He did see Dr. Knott from cardiology 06/05 who recommended proceeding with colonoscopy without further cardiac testing at that point. Review of Systems Constitutional Constitutional: Denies anorexia, Denies chills, Denies fever(s), Denies headache(s), Reports lethargy and Denies weakness Eyes Eyes: Denies change in vision and Denies irritation ENT Ears, Nose, Mouth, and Throat: Denies dizziness, Denies headache(s), Denies nasal congestion, Denies nasal discharge and Denies sore throat Cardiovascular Cardiovascular: Denies chest pain, Denies palpitations and Denies orthopnea Respiratory Respiratory: Denies cough, Denies excessive phlegm production and Denies wheezing Gastrointestinal Gastrointestinal: Denies melena, Reports hematochezia, Denies heartburn and Denies vomiting Genitourinary Genitourinary: Reports hematuria (unsure if stool), Denies dysuria and Denies urinary incontinence Integumentary/Breasts Skin/Breast: Reports pruritus, Reports rash and Denies skin ulcer Neurologic Neurologic: Denies dizziness, Denies headache(s), Denies sensory deficit and Denies weakness Psychiatric Psychiatric: Denies mood swings Endocrine Endocrine: Denies palpitations Hematologic/Lymphatic Hematologic/Lymphatic: Denies easy bruising and Denies lymphadenopathy Allergic/Immunologic Allergic/Immunologic: Denies wheezing [facility] Medical History Abnormal auditory perception (10/19/13) Acute renal failure Atrial flutter (02/14/10) Background retinopathy (04/27/15) 04/26/15; [facility]; MILD 05/01/16; MILD; [facility] Carotid artery stenosis Choledocholithiasis with acute cholecystitis with obstruction s/p cholecystectomy Chronic pulmonary heart disease (02/14/10) Pulmonary Hypertension Colon cancer screening Degeneration of cervical intervertebral disc Depressive disorder Deviated nasal septum (02/22/14) Diabetes type 2, controlled Diastolic dysfunction Epistaxis, recurrent Essential hypertension (04/01/13) Gastroesophageal reflux disease Generalized osteoarthrosis Gynecomastia (11/01/16) History of mitral valve replacement Hyperkalemia, diminished renal excretion Obstructive jaundice Obstructive sleep apnea Retinal detachment O.D. 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-[facility] Sensory hearing loss, bilateral (10/19/13) Stage 3 chronic kidney disease Venous insufficiency (11/01/16) Surgical History Extraction of cataract (01/05/11) H/O mitral valve repair (~2013) 2013 History of cataract removal with insertion of prosthetic lens PROCEDURES REPLACE AORTIC VALVE NEC, 2006 REPLACE MITRAL VALVE NEC, 2007 S/P ERCP (~08/2016) S/P laparoscopic cholecystectomy (~08/2016) [facility] Status post aortic valve replacement (~2013) porcine valve Family History Other Diabetes Essential hypertension Heart disease Social History (Updated 10/05/20 @ 08:33 by Saeid Ordoñez) Smoking/Tobacco Use Status: Former Tobacco Use tobacco type: cigarettes Quit Date: 08/08/05 Smoking risk assessment performed?: Yes Alcohol Intake: current Alcohol Intake frequency: holidays/special occasions only Drug use: Never Current gender identity: male Do you feel safe at home: Yes Do you feel safe in your relationship?: Yes Additional Social history: Lives with in [place]. [facility] [employer] Allergies and Home Medications Allergies Allergy/AdvReac Type Severity Reaction Status Date / Time No Known Drug Allergies Allergy Verified 10/04/20 14:15 Home Medications Medication Instructions Recorded Confirmed Type BD Insulin Syringe 09/30/12 06/28/20 History OneTouch Ultra Test strip 09/30/12 06/28/20 History ascorbic acid (vitamin C) [Vitamin 500 mg PO DAILY 09/30/12 10/04/20 History C] glucosamine sulfate 1,000 mg PO DAILY 09/30/12 10/04/20 History lancing device with lancets kit 09/30/12 06/28/20 History [OneTouch Delica Lanc Device] multivitamin [Daily Multi-Vitamin] 1 ea PO DAILY 09/30/12 10/04/20 History pantoprazole [Protonix] 40 mg PO DAILY packet 09/30/12 10/04/20 History simvastatin 20 mg PO DAILY tab-cap 09/30/12 10/04/20 History cholecalciferol (vitamin D3) 1 tab PO DAILY 01/19/14 10/04/20 History aspirin 81 mg PO DAILY tab-cap 05/23/17 10/04/20 History Lantus U-100 Insulin 60 - 70 unit SQ HS #3 vial 08/16/17 10/04/20 Rx allopurinol 100 mg PO BID #180 tab-cap 10/03/17 10/04/20 Rx ipratropium bromide 42 mcg (0.06 2 spray SERGIO TID PRN #15 ml 07/10/18 10/04/20 Rx %) nasal spray acetaminophen 650 mg 650 mg PO Q12H PRN 01/26/19 06/28/20 History tablet,extended release colloidal oatmeal 1 % topical cream % TP PRN 01/26/19 05/20/20 History diclofenac sodium 1 % topical gel 2 gm TP QID PRN 01/26/19 10/04/20 History metoprolol tartrate 25 mg tablet 12.5 mg PO BID #90 tab-cap 11/03/19 10/04/20 Rx lisinopril 5 mg tablet 5 mg PO DAILY 11/26/19 10/04/20 History furosemide 40 mg tablet 40 mg PO DAILY #90 tab 01/15/20 10/04/20 Rx bisacodyl 5 mg tablet,delayed 5 mg PO ONCE #4 tab 10/04/20 Rx release polyethylene glycol 3350 17 17 g PO ONCE #238 g 10/04/20 Rx gram/dose oral powder triamcinolone acetonide 1 applic TOPICAL BID PRN 10/04/20 10/04/20 History Exam Narrative Exam Narrative: GEN: Alert and oriented, pleasent and cooperative, gives linear history although slow to respond to questions. No acute distress at rest. HEENT: Head atraumatic. Conjunctiva clear, no icterus. PEERL, EOMI. no rhinorrhea. MMM, OP benign. Neck is supple with no masses or lymphadenopathy LUNGS: CTAB with normal effort CV: RRR, 2/6 systolic murmur LSB, no radiation. No gallops, or rubs. ABD: +BS, soft, ND. Very mild tenderness with lower abdominal palpation, no rebound/guarding. EXT: no cyanosis, clubbing, or edema. legs not tender to palpation MSK: No joint redness or swelling NEURO: CN 2-12 grossly intact. Normal movement of 4 extremities. Normal speech and coordination SKIN: No open wounds, scabbed/excoriated patches of skin ~1cm on lower abdomen to upper thighs. PSYCH: normal mood and affect Results Labs Result diagrams: 10/05/20 06:30 10/05/20 06:30 Labs: Laboratory Results - last 24 hr 10/04/20 10/04/20 10/04/20 23:00 23:00 23:00 WBC 9.00 RBC 3.23 L Hgb 9.8 L Hct 30.8 L MCV 95.4 H MCH 30.3 MCHC 31.8 L RDW 15.7 H Plt Count 162 MPV 11.7 H Immature Gran % 0.6 Neutrophils % 68.9 Lymphocytes % 12.6 Monocytes % 6.9 Eosinophils % 10.6 Basophils % 0.4 Nucleated RBC % 0 Absolute Neutrophils 6.21 Absolute Lymphocytes 1.13 L Absolute Monocytes 0.62 Absolute Eosinophils 0.95 H Absolute Basophils 0.04 Sodium 140 Potassium 5.4 H Chloride 108 H Carbon Dioxide 20.7 L Anion Gap 11.3 H BUN 97 H* Creatinine 3.0 H Estimated GFR/1.73 m2 20.45 Glucose 234 H D Calcium 9.1 Iron 33 L TIBC 241 L Transferrin % Sat 14 L Total Bilirubin 0.3 AST 19 ALT 26 Alkaline Phosphatase 99 Total Protein 7.6 Albumin 3.3 L Urine Color Urine Clarity Urine pH Ur Specific [place] Urine Protein Urine Ketones Urine Blood Urine Nitrite Urine Bilirubin Urine Urobilinogen Ur Leukocyte Esterase Urine Glucose COVID-19 Source 10/05/20 10/05/20 00:35 00:36 WBC RBC Hgb Hct MCV MCH MCHC RDW Plt Count MPV Immature Gran % Neutrophils % Lymphocytes % Monocytes % Eosinophils % Basophils % Nucleated RBC % Absolute Neutrophils Absolute Lymphocytes Absolute Monocytes Absolute Eosinophils Absolute Basophils Sodium Potassium Chloride Carbon Dioxide Anion Gap BUN Creatinine Estimated GFR/1.73 m2 Glucose Calcium Iron TIBC Transferrin % Sat Total Bilirubin AST ALT Alkaline Phosphatase Total Protein Albumin Urine Color Yellow Urine Clarity Clear Urine pH 5.5 Ur Specific [place] 1.020 Urine Protein Negative Urine Ketones Negative Urine Blood Negative Urine Nitrite Negative Urine Bilirubin Negative Urine Urobilinogen 0.2 Ur Leukocyte Esterase Negative Urine Glucose Negative COVID-19 Source Nasal/nares Last Vital Signs Temp 36.9 C 10/05/20 03:30 Pulse 101 H 10/05/20 03:30 Resp 18 10/05/20 03:30 BP 101/46 L 10/05/20 03:30 Pulse Ox 98 10/05/20 03:30 COVID-19 Screening Have you, or household traveled for leisure in last 14 days?: No Had IN PERSON contact w/suspected or confirmed C-19 person: No
[2020-10-05] MEDS: Pantoprazole 40 MG VIAL IVP ×2 (07:15→18:41)
[2020-10-05 07:45] LABS: Abs Immature Grans 0.03 10^3/uL (0.0-0.06); Absolute Basophil Count 0.04 10^3/uL (0.0-0.2); Absolute Lymphocyte Count 0.93 10^3/uL (1.2-3.4); Absolute Monocyte Count 0.61 10^3/uL (0.1-0.8); Absolute Neutrophil Count 6.92 10^3/uL (1.2-6.7); Basophils % 0.4; Eosinophils % 4.5; HCT 26.4 % (40.0-50.0); HGB 8.4 g/dL (13.5-17.5); Immature Grans % 0.3; Lymphocytes % 10.4; MCH 30.1 pg (27.0-33.0); MCHC 31.8 % (32.0-36.0); MCV 94.6 fL (80-95); MPV 11.7 fL (8.0-11.0); Monocytes % 6.8; Neutrophils % 77.6; Nucleated RBC 0 %; Platelet Count 164 10^3/uL (130-400); RBC 2.79 10^6/uL (4.36-5.78); RDW 15.8 % (11.8-14.1); RDW-SD 54.7 fL; WBC 8.93 10^3/uL (4.4-10.8)
[2020-10-05 07:50] LABS: Anion Gap 12.4 mmol/L (3-11); CO2 18.6 mmol/L (21.0-32.0); CREATININE 2.7 mg/dL (0.70-1.30); Calcium 8.5 mg/dL (8.5-10.1); Chloride 113 mmol/L (98-107); Estimated GFR 23.09 (mL/min/1.73m2); Glucose 195 mg/dL (74-106); Potassium 5.2 mmol/L (3.5-5.1); Sodium 144 mmol/L (136-145)
[2020-10-05 07:56] LABS: BUN 91 mg/dL (7-18)
[2020-10-05 08:13] LABS: Diff Comment Diff Reviewed
--- NOTE | 2020-10-05 08:21 | W.SURGCON ---
Date of service: 10/05/20 Time of Service: 08:21 Assessment and Plan Assessment and plan (1) Colonic mass: Status: Acute Assessment and plan: Discussed with Mr. Sullivan the findings on the CT scan performed in the ER. Discussed the potential of a sigmoidoscopy under sedation for further evaluation of the masslike lesion noted and to evaluate for possible obstruction. Biospies would also be taken at the time of the Sigmoidoscopy. This would allow for further information to allow for further discussion of a treatment plan moving forward. Mr. Enamorado states he has never had a Colonoscopy. -Discussed the bowel prep as well as the procedure. Discussed possible complications of the procedure to include bleeding, pain, perforation, missed small lesion/polyp, sore throat, aspiration and adverse reaction to the medications. Questions were answered to patient?s satisfaction. No guarantees were implied or given. Mr. Enamorado family will be visiting later today, per Mr. Enamorado. He would like to wait until they arrive in person to discuss the current treatment plan with them. He does not wish to have this conversation with them over the phone. Spoke with Anesthesia regarding . At this time they have reservations in proceeding with his procedure here at [facility] given his current health status and multiple co-morbidities. These concerns were relayed to the hospitalist, whom will pursue the potential for transfer to a tertiary center. At this time, we will continue to follow Mr. Casarez's awaiting for him to be more medically stable. If he is not able to be transferred, we will tentatively plan on proceeding with Sigmoidoscopy for biopsies on medically stable. (2) Hyperkalemia, diminished renal excretion: Status: Acute (3) Diastolic dysfunction: Status: Acute (4) Stage 3 chronic kidney disease: Status: Acute History of Present Illness History of Present Illness Chief Complaint: Colonic Mass and Anemia Narrative: 75 y/o male with a history of atrial fibrillation, hx of aortic valve and mitral valve replacement, HTN, GERD, KHADIJAH and Stage 4 CKD presented to the ER for abdominal pain which has been associated with loose stools, abdominal bloating, bright blood blood per rectum and recent unintentional weight loss of 20-30#. CT scan showed a 6 cm masslike colonic wall thickening in the mid to proximal sigmoid colon. A large amount of stool was noted proximally to this area. Patient denies having any chest pain, dyspnea or dypnsea with exertion. [facility] Medical History Abnormal auditory perception (10/19/13) Acute renal failure Atrial flutter (02/14/10) Background retinopathy (04/27/15) 04/26/15; [facility]; MILD 05/01/16; MILD; [facility] Carotid artery stenosis Choledocholithiasis with acute cholecystitis with obstruction s/p cholecystectomy Chronic pulmonary heart disease (02/14/10) Pulmonary Hypertension Colon cancer screening Degeneration of cervical intervertebral disc Depressive disorder Deviated nasal septum (02/22/14) Diabetes type 2, controlled Diastolic dysfunction Epistaxis, recurrent Essential hypertension (04/01/13) Gastroesophageal reflux disease Generalized osteoarthrosis Gynecomastia (11/01/16) History of mitral valve replacement Hyperkalemia, diminished renal excretion Obstructive jaundice Obstructive sleep apnea Retinal detachment O.D. 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-[facility] Sensory hearing loss, bilateral (10/19/13) Stage 3 chronic kidney disease Venous insufficiency (11/01/16) Surgical History Extraction of cataract (01/05/11) H/O mitral valve repair (~2013) 2013 History of cataract removal with insertion of prosthetic lens PROCEDURES REPLACE AORTIC VALVE NEC, 2006 REPLACE MITRAL VALVE NEC, 2007 S/P ERCP (~08/2016) S/P laparoscopic cholecystectomy (~08/2016) [facility] Status post aortic valve replacement (~2013) porcine valve Family History Other Diabetes Essential hypertension Heart disease Social History Smoking/Tobacco Use Status: Former Tobacco Use tobacco type: cigarettes Quit Date: 08/08/05 Smoking risk assessment performed?: Yes Alcohol Intake: current Alcohol Intake frequency: holidays/special occasions only Drug use: Never Current gender identity: male Do you feel safe at home: Yes Do you feel safe in your relationship?: Yes Additional Social history: Lives with in [place]. [place] [employer] Exam Const General: cooperative, healthy appearing and comfortable Orientation: alert and oriented x3 Resp Effort & Inspection: normal respiratory effort, no audible wheezes and no cough GI Inspection: normal to inspection Palpation: soft, not firm, no guarding and nontender Results Last Vital Signs Temp 36.9 C 10/05/20 03:30 Pulse 89 10/05/20 08:02 Resp 18 10/05/20 03:30 BP 101/46 L 10/05/20 03:30 Pulse Ox 98 10/05/20 03:30 Labs Result diagrams: 10/05/20 06:30 10/05/20 06:30 Labs: Laboratory Results - last 24 hr 10/04/20 10/04/20 10/04/20 23:00 23:00 23:00 WBC 9.00 RBC 3.23 L Hgb 9.8 L Hct 30.8 L MCV 95.4 H MCH 30.3 MCHC 31.8 L RDW 15.7 H Plt Count 162 MPV 11.7 H Immature Gran % 0.6 Neutrophils % 68.9 Lymphocytes % 12.6 Monocytes % 6.9 Eosinophils % 10.6 Basophils % 0.4 Nucleated RBC % 0 Absolute Neutrophils 6.21 Absolute Lymphocytes 1.13 L Absolute Monocytes 0.62 Absolute Eosinophils 0.95 H Absolute Basophils 0.04 RBC Morphology Sodium 140 Potassium 5.4 H Chloride 108 H Carbon Dioxide 20.7 L Anion Gap 11.3 H BUN 97 H* Creatinine 3.0 H Estimated GFR/1.73 m2 20.45 Glucose 234 H D Calcium 9.1 Iron 33 L TIBC 241 L Transferrin % Sat 14 L Total Bilirubin 0.3 AST 19 ALT 26 Alkaline Phosphatase 99 Total Protein 7.6 Albumin 3.3 L Urine Color Urine Clarity Urine pH Ur Specific [place] Urine Protein Urine Ketones Urine Blood Urine Nitrite Urine Bilirubin Urine Urobilinogen Ur Leukocyte Esterase Urine Glucose COVID-19 Source 10/05/20 10/05/20 10/05/20 00:35 00:36 06:30 WBC RBC Hgb Hct MCV MCH MCHC RDW Plt Count MPV Immature Gran % Neutrophils % Lymphocytes % Monocytes % Eosinophils % Basophils % Nucleated RBC % Absolute Neutrophils Absolute Lymphocytes Absolute Monocytes Absolute Eosinophils Absolute Basophils RBC Morphology Sodium 144 Potassium 5.2 H Chloride 113 H Carbon Dioxide 18.6 L Anion Gap 12.4 H BUN 91 H* Creatinine 2.7 H Estimated GFR/1.73 m2 23.09 Glucose 195 H Calcium 8.5 Iron TIBC Transferrin % Sat Total Bilirubin AST ALT Alkaline Phosphatase Total Protein Albumin Urine Color Yellow Urine Clarity Clear Urine pH 5.5 Ur Specific [place] 1.020 Urine Protein Negative Urine Ketones Negative Urine Blood Negative Urine Nitrite Negative Urine Bilirubin Negative Urine Urobilinogen 0.2 Ur Leukocyte Esterase Negative Urine Glucose Negative COVID-19 Source Nasal/nares 10/05/20 06:30 WBC 8.93 RBC 2.79 L Hgb 8.4 L Hct 26.4 L MCV 94.6 MCH 30.1 MCHC 31.8 L RDW 15.8 H Plt Count 164 MPV 11.7 H Immature Gran % 0.3 Neutrophils % 77.6 Lymphocytes % 10.4 Monocytes % 6.8 Eosinophils % 4.5 Basophils % 0.4 Nucleated RBC % 0 Absolute Neutrophils 6.92 H Absolute Lymphocytes 0.93 L Absolute Monocytes 0.61 Absolute Eosinophils 0.40 Absolute Basophils 0.04 RBC Morphology See below Sodium Potassium Chloride Carbon Dioxide Anion Gap BUN Creatinine Estimated GFR/1.73 m2 Glucose Calcium Iron TIBC Transferrin % Sat Total Bilirubin AST ALT Alkaline Phosphatase Total Protein Albumin Urine Color Urine Clarity Urine pH Ur Specific [place] Urine Protein Urine Ketones Urine Blood Urine Nitrite Urine Bilirubin Urine Urobilinogen Ur Leukocyte Esterase Urine Glucose COVID-19 Source
[2020-10-05 08:27] LABS: Hemoglobin A1C 7.6 % (<5.7)
[2020-10-05] MEDS: Insulin Aspart 300 UNITS/3 ML PEN SC ×2 (08:41→17:25)
[2020-10-05] MEDS: Triamcinolone 0.1% CR 15 GM TUBE TP ×2 (08:42→20:43)
[2020-10-05] MEDS: Sodium Zirconium Cyclosilicate 10 GM PKT PO ×3 (08:42→21:51)
[2020-10-05] MEDS: Normal Saline 1,000 ML 85 ML IV ×2 (08:43→20:45)
--- NOTE | 2020-10-05 09:43 | INITIAL_ITS ---
- If Service Date Differs Date of service: 10/05/20 Time of Service: 09:43 Care Management Initial Assess REASON FOR HOSPITALIZATION:: Colon Cancer, Elevated BUN, Anemia PAST MEDICAL HISTORY/PAST SURGICAL HISTORY:: Abnormal auditory perception (10/19/13). Acute renal failure. Atrial flutter (02/14/10). Background retinopathy (04/27/15). 04/26/15; [facility]; MILD. 05/01/16; MILD; [facility]. Carotid artery stenosis. Choledocholithiasis with acute cholecystitis with obstruction. s/p cholecystectomy. Chronic pulmonary heart disease (02/14/10). Pulmonary Hypertension. Colon cancer screening. Degeneration of cervical intervertebral disc. Depressive disorder. Deviated nasal septum (02/22/14). Diabetes type 2, controlled. Diastolic dysfunction. Epistaxis, recurrent. Essential hypertension (04/01/13). Gastroesophageal reflux disease. Generalized osteoarthrosis. Gynecomastia (11/01/16). History of mitral valve replacement. Hyperkalemia, diminished renal excretion. Obstructive jaundice. Obstructive sleep apnea. Retinal detachment. O.D. Rheumatic aortic stenosis. s/p aortic valve replacement in 2014-[facility]. Sensory hearing loss, bilateral (10/19/13). Stage 3 chronic kidney disease. Venous insufficiency (11/01/16). Surgical History . Extraction of cataract (01/05/11). H/O mitral valve repair (~2013). 2014. History of cataract removal with insertion of prosthetic lens. PROCEDURES. REPLACE AORTIC VALVE NEC, 2006. REPLACE MITRAL VALVE NEC, 2006. S/P ERCP (~08/2016). S/P laparoscopic cholecystectomy (~08/2016). [facility]. Status post aortic valve replacement (~2013). porcine valve PREVIOUS FUNCTIONAL STATUS/SOCIAL/FAMILY SUPPORTS:: Edward resides in [place], [place] with his Lay. They have one daughter, Yulisa (Lorenzo Contreras) and three son's ([facility] and [place], [place]). They have 10 grandchildren. 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 He enjoys bowling and continues to drive. CURRENT FUNCTIONAL STATUS:: Edward remains on precautions, awaiting determination if he will require transfer for sigmoidoscopy or if this will be performed at [facility]; he will discuss with his family this afternoon. CM continues to follow. ADVANCE DIRECTIVES:: None on file. Has patient been provided with info about the portal/API?: Yes Did the patient sign up for the portal?: No CODE STATUS:: Full Code INSURANCE COVERAGE / FINANCIAL ISSUES:: Medicare CURRENT HOME/COMMUNITY SERVICES/EQUIPMENT:: CPAP, glucometer, hearing aides PRIMARY CARE PHYSICIAN:: Kemi Lang POTENTIAL DISCHARGE NEEDS:: Colon cancer, elevated bun, anemia PATIENT/FAMILY EDUCATION NEEDS:: Review discharge instructions, discuss Ask Me Three. ANTICIPATED BARRIERS TO DISCHARGE:: None identified. TRANSPORTATION:: TBD by disposition. PLAN:: Anticipate Edward will remain at [facility] for sigmoidoscopy versus transfer to tertiary; awaiting MD and patient determinations. CM continues to follow.
[2020-10-05 11:03] LABS: COVID-19 PCR Negative (Negative)
[2020-10-05 14:39] LABS: Anion Gap 10.1 mmol/L (3-11); CO2 18.9 mmol/L (21.0-32.0); CREATININE 2.6 mg/dL (0.70-1.30); Calcium 8.8 mg/dL (8.5-10.1); Chloride 112 mmol/L (98-107); Estimated GFR 24.12 (mL/min/1.73m2); Glucose 286 mg/dL (74-106); Potassium 5.3 mmol/L (3.5-5.1); Sodium 141 mmol/L (136-145)
[2020-10-05 14:45] LABS: BUN 86 mg/dL (7-18)
--- NOTE | 2020-10-05 15:58 | CHAPLAIN ---
I visited today with Edward and his daughter, Yulisa. Edward was reserved and didn't say much. Yulisa was encouraging him to ring his call smith when he needs something. (He wanted to get back into bed.) Yulisa said he is called Papa Bear by his grandchildren and he had a blanket on him with a papa bear, and little bears with all his grandkids' names. I explained my role and offered support. I will continue to visit.
[2020-10-05] MEDS: Metoprolol 25 MG TAB 12.5 MG PO (20:41)
[2020-10-05] MEDS: Simvastatin 20 MG TAB PO (20:42)
[2020-10-05] MEDS: Allopurinol 100 MG TAB PO (20:42)
[2020-10-05] MEDS: Insulin Glargine 300 UNITS/3 ML PEN 60 UNITS SC (21:51)
[2020-10-05 22:07] LABS: C Diff PCR Negative (Negative)
[2020-10-06 03:20] VITALS: BP 122/67; PULSE 87; RESP 19; TEMP 37.4; O2SAT 96
[2020-10-06] MEDS: Sodium Zirconium Cyclosilicate 10 GM PKT PO (06:33)
[2020-10-06] MEDS: Pantoprazole 40 MG VIAL IVP (06:33)
[2020-10-06] MEDS: Normal Saline Flush 10 ML SYR IVP ×2 (06:33→11:53)
[2020-10-06] MEDS: Normal Saline 1,000 ML 85 ML IV (07:07)
[2020-10-06 07:20] VITALS: PULSE 78
[2020-10-06 07:24] LABS: Abs Immature Grans 0.04 10^3/uL (0.0-0.06); Absolute Basophil Count 0.04 10^3/uL (0.0-0.2); Absolute Eosinophil Count 0.77 10^3/uL (0.0-0.7); Absolute Lymphocyte Count 0.74 10^3/uL (1.2-3.4); Absolute Monocyte Count 0.68 10^3/uL (0.1-0.8); Absolute Neutrophil Count 7.32 10^3/uL (1.2-6.7); Basophils % 0.4; HGB 7.8 g/dL (13.5-17.5); Immature Grans % 0.4; Lymphocytes % 7.7; MCH 29.9 pg (27.0-33.0); MCHC 31.2 % (32.0-36.0); MCV 95.8 fL (80-95); MPV 11.8 fL (8.0-11.0); Monocytes % 7.1; Neutrophils % 76.4; Nucleated RBC 0 %; Platelet Count 164 10^3/uL (130-400); RBC 2.61 10^6/uL (4.36-5.78); RDW 15.7 % (11.8-14.1); RDW-SD 54.9 fL; WBC 9.59 10^3/uL (4.4-10.8)
[2020-10-06 07:36] LABS: ALT 17 U/L (16-63); AST 15 U/L (15-37); Albumin 2.5 g/dL (3.4-5.0); Alkaline Phosphatase 73 U/L (46-116); Anion Gap 11.3 mmol/L (3-11); BUN 67 mg/dL (7-18); Bilirubin, Total 0.5 mg/dL (0.2-1.0); CO2 18.7 mmol/L (21.0-32.0); CREATININE 2.1 mg/dL (0.70-1.30); Calcium 8.4 mg/dL (8.5-10.1); Chloride 115 mmol/L (98-107); Estimated GFR 30.86 (mL/min/1.73m2); Potassium 4.4 mmol/L (3.5-5.1); Sodium 145 mmol/L (136-145); Total Protein 5.8 g/dL (6.4-8.2)
[2020-10-06 07:41] LABS: Glucose 36 mg/dL (74-106)
[2020-10-06] MEDS: Dextrose 50%-Water 25 GM/50 ML SYR IVP (07:45)
[2020-10-06] MEDS: Metoprolol 25 MG TAB 12.5 MG PO (08:00)
[2020-10-06] MEDS: Glucosamine 500 MG CAP 1000 MG PO (08:00)
[2020-10-06] MEDS: Triamcinolone 0.1% CR 15 GM TUBE TP (08:01)
[2020-10-06] MEDS: Allopurinol 100 MG TAB PO (08:01)
[2020-10-06 09:11] VITALS: BP 111/64; PULSE 74; RESP 18; TEMP 36.9; O2SAT 95
--- NOTE | 2020-10-06 09:55 | PDOC.CMPRO ---
Care Management Progress Note Per provider Edward will transfer to [place] or Tertiary today, via EMS. BRADLEY notified by RN, Irene @[id number] that Edward was weeping, wanting to see his daughter and before [facility]. Irene reported he was leaving at 1400. CM called Lay to inquire about her ability to come see Edward prior to discharge. Lay reported not right now. CM reviewed information central to planned [facility] to [facility]. Lay responded No!, loudly yelling. CM clarified that intent to transfer was known information. Lay reported No!. Stating he would not want to [facility] the [facility]. CM reviewed info that discharge was planned for 1400. Lay stated you better not do anything before my daughter gets there. Lay stated Yulisa was on her way. CM agreed to review the 's statements with RN, and provider, Alize. CM reviewed with ETHEL Bonilla over the phone, and JONA Herrmann in the office. Alize and BRADLEY called Lay who sounded upset over the phone and ended the call abruptly. BRADLEY and JONA Herrmann then met with daughter, Yulisa and Edward who were both visibly and verbally upset with the plan. After an extended discussion the family was ultimately agreeable to [facility].
--- NOTE | 2020-10-06 11:08 | NUR.NOTE ---
Nursing Note: At 1108 on 10/06/20, this RN answered a call from the pt.'s daughterYulisa. RN updated the pt.'s daughter regarding the pt.'s mentation, VS, pain level, head to toe assessment, lab values, plan of care (including possible transfer to a larger healthcare facility), etc. Pt.'s daughter verbalized understanding and presented with a few questions that were answered. RN will reassess as necessary.
[2020-10-06 11:46] VITALS: BP 134/76; PULSE 73; RESP 18; TEMP 36.7; O2SAT 98
[2020-10-06] MEDS: Insulin Aspart 300 UNITS/3 ML PEN SC (11:54)
[2020-10-06 12:14] LABS: HCT 25.8 % (40.0-50.0); HGB 8.2 g/dL (13.5-17.5)
--- NOTE | 2020-10-06 12:32 | W.PM.DS.N ---
DS: Diagnosis Discharge Diagnosis (1) Hyperkalemia, diminished renal excretion: Start date: 10/06/20 Start time: 12:40 Status: Acute Asessment and Plan: hyperkalemia has resolved with lokelmia, creatinine has improved down to 2.1 BUN from 100 to 67 today. (2) Colonic mass: Start date: 10/06/20 Start time: 12:42 Status: Acute Asessment and Plan: Found by CT 7-8 cm masslike colonic wall thickening in the mid to proximal sigmoid colon, due to history and extensive surgery required patient needs higher level of care. He needs, surgery, GI, oncology He will likely need colonoscopy with open surgery [facility] has agreed to admission (3) Diastolic dysfunction: Start date: 10/06/20 Start time: 12:44 Status: Chronic Asessment and Plan: Patient's cardiac history of bioprosthetic aortic and mitral valves noted. Has h/o diastolic dysfunction and right heart failure. he has been stable. He is not currently in CHF, will monitor with fluids. (4) Essential hypertension: Start date: 10/06/20 Start time: 12:45 Status: Chronic Asessment and Plan: Hold lisinopril and lopressor in setting of heart rate elevation being blunted (5) Atrial flutter: Start date: 10/06/20 Start time: 12:48 Status: Chronic Asessment and Plan: H/o flutter, paroxysmal Afib per cardiology. Only on ASA despite high [id number]. On metoprolol. Holding blood thinners for now, but consider anticoagulation after GI bleed resolves. (6) Diabetes type 2, controlled: Start date: 10/06/20 Start time: 12:48 Status: Chronic Asessment and Plan: Hypoglycemic events this am x 2. Now 252, he will need q 30 m bg checks on his way to [place] (7) Stage 3 chronic kidney disease: Start date: 10/06/20 Start time: 12:50 Status: Chronic (8) Anemia: Start date: 10/06/20 Start time: 12:51 Status: Acute Asessment and Plan: In setting of setting of colon mass, monitor h/h repeat from am above 8 not requiring blood transfusion at this time. (9) DVT prophylaxis: Start date: 10/06/20 Start time: 12:52 Status: Acute Asessment and Plan: held at this time due to bleeding (10) Discharge planning issues: Start date: 10/06/20 Start time: 12:52 Status: Acute Asessment and Plan: being transferred to [place] he has been accepted to above case discussed with Dr. Pedroza Discharge Plan Disposition Patient Disposition: [facility] Condition: Serious Discharge Details Reason For Visit: COLON CANCER, ELEVATED BUN, ANEMIA Admit Date/Time: 10/05/20 09:49 Admit Provider: Saeid Ordoñez Attending Provider: Saeid Ordoñez Primary Care Provider: [facility] Course Hospital Course: 75 yo M with h/o bioprosthetic aortic and mitral valves, diastolic dysfunction, CKD, pAfib just on ASA, who has had more than 4 months of loose and intermittently bloody stools associated with weight loss sent to ED by primary care Dr. Hannah due to lab abnormalities including worsening creatinine and K+ elevated to 5.4. He had no acute complaints other than crampy lower abdominal discomfort that is constant and loose stools that are soft to watery and intermittently bloody. He has been eating, but loosing 20-30lbs over this time. He has stayed active by walking he lives with his at home. He has felt some fatigue, but no chest pain or palpitations or shortness of breath. Review of history reveals he had a positive FIT test in 2018 and had noted anemia for a year, but never had a colonoscopy. He did see Dr. Phoenix to discuss colonoscopy in June, with plan to medically clear with anesthesia before colonoscopy at [facility] vs referral to [facility], [facility], or [facility]. He did see Dr. Knott from cardiology 06/05 who recommended proceeding with colonoscopy without further cardiac testing at that point. Labs in ED revealed BUN 86, creatinine 2.6, co2 18.9, potassium 5.3 h/h 8.3/ 26.4. Imaging revealing There is a 6-8 cm segment of masslike colonic wall thickening in the mid to proximal sigmoid colon highly suspicious for colon carcinoma. Wall thickening related to colitis in this segment is considered less likely. No evidence of perforation or abscess. GI consultation and colonoscopy evaluation recommended. 2. Large amount of stool distributed throughout the colon proximal to the masslike segment concerning for partial colonic obstruction. 3. Mild wall thickening and adjacent stranding involving the descending colon proximal to the mass may represent an element of colitis. 4. Mild distal colonic diverticulosis without focal changes of diverticulitis. He was asked to be admitted to hospital services for further management. Over course of treatment he was given lokalema to treat hyperkalemia, potassium 4.4 today. Creatinine and BUN improved today. He did have a hypoglycemic event this am given d50 afternoon bgl 252. Surgery consulted and evaluated, anesthesia felt given history and complexity of case he would be better at tertiary care center. He has been accepted at [facility] for higher level of care. Home Meds and New Rx's Prescriptions: No Action ipratropium bromide 42 mcg (0.06 %) spray,non-aerosol 2 spray SERGIO TID PRN (Reason: postnasal drip) Qty: 15 RF: 2 acetaminophen [Tylenol 8 Hour] 650 mg tablet extended release 650 mg PO Q12H PRNRF: 0 diclofenac sodium 1 % gel 2 gm TP QID PRNRF: 0 Eucerin Eczema Relief 1 % cream TP PRNRF: 0 lisinopril 5 mg tablet 5 mg PO DAILY RF: 0 multivitamin [Daily Multi-Vitamin] 1 EACH tablet 1 ea PO DAILY RF: 0 (DME) OneTouch Ultra Test 1 EACH strip 1 ea Miscellaneous QID RF: 0 ascorbic acid (vitamin C) [Vitamin C] 500 MG tablet 500 mg PO DAILY RF: 0 simvastatin 20 MG tablet 20 mg PO DAILY RF: 0 glucosamine sulfate 1,000 MG capsule 1,000 mg PO DAILY RF: 0 (DME) BD Insulin Syringe 1 EACH syringe 1 unit Sub-Q DAILY RF: 0 pantoprazole [Protonix] [address] for susp in packet 40 mg PO DAILY RF: 0 (DME) lancing device with lancets [Espressiuch Delica Lanc Device] 1 EACH kit 1 ea Miscellaneous QID RF: 0 aspirin 81 MG tablet,chewable 81 mg PO DAILY RF: 0 Lantus U-100 Insulin 100 UNIT/1 ML solution 60 - 70 unit SQ HS Qty: 3 RF: 4 allopurinol 100 MG tablet 100 mg PO BID Qty: 180 RF: 4 metoprolol tartrate 25 mg tablet 12.5 mg PO BID Qty: 90 RF: 4 furosemide [Lasix] 40 mg tablet 40 mg PO DAILY Qty: 90 RF: 4 bisacodyl [Dulcolax (bisacodyl)] 5 mg tablet,delayed release (DR/EC) 5 mg PO ONCE Qty: 4 RF: 0 polyethylene glycol 3350 17 gram/dose powder 17 g PO ONCE Qty: 238 RF: 0 cholecalciferol (vitamin D3) 1,000 UNIT tablet 1 tab PO DAILY RF: 0 triamcinolone acetonide 0.1 % cream 1 applic Topical BID PRNRF: 0 Discharge Instructions Additional Instructions: Transfer to [facility] Activity:: Activity as Tolerated Equipment/Supplies:: No Equipment Needed Diet:: Carb Counting Discharge Orders Discharge Orders: Discharge Order (Routine); Ordered 10/06/20 Ordered By: Cass Randhawa DS: Summary Time Spent with Patient providing and/or coordinating discharge services: Greater than 30 minutes (approx 90 mins spent ) Status at Discharge Functional status at discharge: independent ambulation Overall status at discharge: patient is not back to baseline Mental Status: mental status grossly normal Speech and Movement: speech and movement normal Mood: congruent mood Affect: normal affect Exam Narrative Exam Narrative: GEN: Alert and oriented, pleasent and cooperative, gives linear history although slow to respond to questions. No acute distress at rest. HEENT: Head atraumatic. Conjunctiva clear, no icterus. PEERL, EOMI. no rhinorrhea. MMM, OP benign. Neck is supple with no masses or lymphadenopathy LUNGS: CTAB with normal effort CV: RRR, 2/6 systolic murmur LSB, no radiation. No gallops, or rubs. ABD: +BS, soft, ND. Very mild tenderness with lower abdominal palpation, no rebound/guarding. EXT: no cyanosis, clubbing, or edema. legs not tender to palpation MSK: No joint redness or swelling NEURO: CN 2-12 grossly intact. Normal movement of 4 extremities. Normal speech and coordination SKIN: No open wounds, scabbed/excoriated patches of skin ~1cm on lower abdomen to upper thighs. PSYCH: normal mood and affect Psych Mental Status: mental status grossly normal Speech and Movement: speech and movement normal Mood: congruent mood Affect: normal affect DS: Data Vitals/I&O Vitals and I&O: Vital Signs Temperature 36.7 C 10/06/20 11:46 Temperature Source Tympanic 10/06/20 11:46 Pulse 73 10/06/20 11:46 Pulse Rhythm Regular 10/06/20 03:42 Pulse 94 H 10/05/20 01:21 Respiratory Rate 18 10/06/20 11:46 Respiratory Effort 10/06/20 03:42 Respiratory Depth Normal 10/06/20 03:42 Respiratory Pattern Normal 10/06/20 03:42 Blood Pressure 134/76 10/06/20 11:46 Blood Pressure Mean 69 10/05/20 01:21 Blood Pressure Position Sitting 10/04/20 22:35 Pulse Oximetry 98 10/06/20 11:46 Oxygen Delivery Method Room Air 10/06/20 11:46 Oxygen Flow Rate 0 10/06/20 11:46 Pain Level 2 10/06/20 11:58 Comment 10/06/20 07:45 Intake & Output 10/05/20 10/06/20 10/06/20 23:59 11:59 23:59 Intake Total 2164.166 / 3311.999 2731.167 / 2731.167 Output Total 1650 / 1650 1000 / 1000 Balance 514.166 / 1589.142 4357.167 / 1731.167 Weight 94 kg Intake: IV 1714.166 / 2861.999 901.167 / 901.167 Oral 450 / 450 1830 / 1830 Output: Urine 1650 / 1650 1000 / 1000 Other: Urine Color Yellow Straw Urine Appearance Clear Clear Urine Odor Normal Comment Void x1 in the toilet. Stool Size Small Small Stool Characteristics Soft Soft Formed Voiding Methods Toilet Toilet Data Completed and Pending Completed studies during hospitalization [Text1]: There is a 6 cm segment of masslike colonic wall thickening in the mid to proximal sigmoid colon highly suspicious for colon carcinoma. Wall thickening related to colitis in this segment is considered less likely. No evidence of perforation or abscess. GI consultation and colonoscopy evaluation recommended. 2. Large amount of stool distributed throughout the colon proximal to the masslike segment concerning for partial colonic obstruction. 3. Mild wall thickening and adjacent stranding involving the descending colon proximal to the mass may represent an element of colitis. 4. Mild distal colonic diverticulosis without focal changes of diverticulitis. 5. Additional non-emergent findings detailed above. Exam(s) a US:US renal EXAM: US RENAL CLINICAL HISTORY: FLOR TECHNIQUE: Ultrasound of both kidneys performed using standard protocol. COMPARISON: No exams were available for comparison FINDINGS: RIGHT KIDNEY: Measures 11.5 cm in length. No cysts evident. Mild uniform cortical thinning and slightly decreased corticomedullary differentiation. No solid renal masses. No intrarenal calculi nor hydronephrosis. LEFT KIDNEY: Measures 11.1 cm in length. No cysts evident. There is also mild uniform cortical thinning and slightly decreased corticomedullary differentiation, similar to the opposite side. No intrarenal calculi nor hydonephrosis. URINARY BLADDER: Prevoid volume is 146 cc Postvoid volume is 0 cc Bladder wall is diffusely thickened. Measurement is 7 millimeters. No evidence of obvious focal bladder mass nor diverticuli. Ureterovesical jets: Not identified. IMPRESSION: 1. Both kidneys exhibit normal size but exhibit mild uniform cortical thinning. Mild decreased corticomedullary differentiation. However, there are no focal abnormalities evident in the kidneys. No cysts nor masses nor calculi nor hydronephrosis. 2. There appears to be uniform thickening of the bladder wall, possibly related to chronic inflammatory change. Labs on day of discharge: Labs from last 24 hours 10/06/20 10/06/20 10/06/20 12:07 06:14 06:14 WBC 9.59 RBC 2.61 L Hgb 8.2 L 7.8 L Hct 25.8 L 25.0 L MCV 95.8 H MCH 29.9 MCHC 31.2 L RDW 15.7 H Plt Count 164 MPV 11.8 H Immature Gran % 0.4 Neutrophils % 76.4 Lymphocytes % 7.7 Monocytes % 7.1 Eosinophils % 8.0 Basophils % 0.4 Nucleated RBC % 0 Absolute Neutrophils 7.32 H Absolute Lymphocytes 0.74 L Absolute Monocytes 0.68 Absolute Eosinophils 0.77 H Absolute Basophils 0.04 Sodium 145 Potassium 4.4 Chloride 115 H Carbon Dioxide 18.7 L Anion Gap 11.3 H BUN 67 H D Creatinine 2.1 H Estimated GFR/1.73 m2 30.86 Glucose 36 L* D Calcium 8.4 L Total Bilirubin 0.5 AST 15 ALT 17 Alkaline Phosphatase 73 Total Protein 5.8 L Albumin 2.5 L Stool Campylobacter PCR Stl C.difficile Tox PCR Stool Salmonella PCR Stool Shigella PCR Shiga Toxin (PCR) 10/05/20 10/05/20 10/05/20 21:00 21:00 14:05 WBC RBC Hgb Hct MCV MCH MCHC RDW Plt Count MPV Immature Gran % Neutrophils % Lymphocytes % Monocytes % Eosinophils % Basophils % Nucleated RBC % Absolute Neutrophils Absolute Lymphocytes Absolute Monocytes Absolute Eosinophils Absolute Basophils Sodium 141 Potassium 5.3 H Chloride 112 H Carbon Dioxide 18.9 L Anion Gap 10.1 BUN 86 H* Creatinine 2.6 H Estimated GFR/1.73 m2 24.12 Glucose 286 H Calcium 8.8 Total Bilirubin AST ALT Alkaline Phosphatase Total Protein Albumin Stool Campylobacter PCR Pending Stl C.difficile Tox PCR Negative Stool Salmonella PCR Pending Stool Shigella PCR Pending Shiga Toxin (PCR) Pending [facility] Medical History Abnormal auditory perception (10/19/13) Acute renal failure Atrial flutter (02/14/10) Background retinopathy (04/27/15) 04/26/15; [facility]; MILD 05/01/16; MILD; [facility] Carotid artery stenosis Choledocholithiasis with acute cholecystitis with obstruction s/p cholecystectomy Chronic pulmonary heart disease (02/14/10) Pulmonary Hypertension Colon cancer screening Degeneration of cervical intervertebral disc Depressive disorder Deviated nasal septum (02/22/14) Diabetes type 2, controlled Diastolic dysfunction Epistaxis, recurrent Essential hypertension (04/01/13) Gastroesophageal reflux disease Generalized osteoarthrosis Gynecomastia (11/01/16) History of mitral valve replacement Hyperkalemia, diminished renal excretion Obstructive jaundice Obstructive sleep apnea Retinal detachment O.D. 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-[facility] Sensory hearing loss, bilateral (10/19/13) Stage 3 chronic kidney disease Venous insufficiency (11/01/16) Surgical History Extraction of cataract (01/05/11) H/O mitral valve repair (~2013) 2013 History of cataract removal with insertion of prosthetic lens PROCEDURES REPLACE AORTIC VALVE NEC, 2007 REPLACE MITRAL VALVE NEC, 2007 S/P ERCP (~08/2016) S/P laparoscopic cholecystectomy (~08/2016) [facility] Status post aortic valve replacement (~2013) porcine valve Family History Other Diabetes Essential hypertension Heart disease Social History Smoking/Tobacco Use Status: Former Tobacco Use tobacco type: cigarettes Quit Date: 08/08/05 Smoking risk assessment performed?: Yes Alcohol Intake: current Alcohol Intake frequency: holidays/special occasions only Drug use: Never Current gender identity: male Do you feel safe at home: Yes Do you feel safe in your relationship?: Yes Additional Social history: Lives with in [place]. [facility] , [facility]
--- NOTE | 2020-10-06 13:03 | NUR.NOTE ---
Nursing Note: At 1250 on 10/06/20, this RN called report on the pt. to ETHEL Goins at the [facility] in [place], [place]. Pt. to be transferred from [facility] to the [facility] per GAS CUTTING MACHINE OPERATOR order. RN will reassess as necessary.
[2020-10-06 14:45] VITALS: PULSE 86
--- NOTE | 2020-10-06 15:00 | NUR.NOTE ---
Nursing Note: At 1428 on 10/06/20, this RN entered the pt.'s room to check on the pt. and help them get packed up and ready for transfer from [facility] to the [facility]. Upon entering the room, the pt. stated that he had a bit of a headache and asked the RN to check his blood sugar. RN left the room, obtained the fingerstick blood glucose supplies, returned to the pt.'s room, and at 1429 on 10/06/20, obtained the blood sugar, which was 96. Pt. requesting one cup of orange juice. RN left the room, obtained the orange juice, and at 1430 on 10/06/20, provided the pt. with the orange juice. At this time, the pt.'s daughter also had questions regarding why the pt.'s blood sugar was so low (36 per laboratory value) this morning. RN provided the pt.'s daughter with education regarding reasons why the pt.'s blood sugar may have been so low this morning (which was already discussed with her when she had called earlier in the day). RN also informed the pt.'s daughter what steps the FINANCIAL PROJECT MANAGER and the RN had taken to correct, monitor, and manage the pt.'s blood sugar at the time of the episode and moving forwards (which was already discussed with her when she had called earlier in the day). Pt.'s daughter verbalized understanding and presented with no further questions. RN will reassess as necessary.
[2020-10-06 22:51] LABS: Campylobacter PCR Negative (Negative); Salmonella PCR Negative (Negative); Shiga Toxin PCR Negative (Negative); Shigella/Enteroinvasive Ecoli Negative (Negative)
== END 2020-10-06 14:52 | disposition short-term general hospital (02) | DRG 641 ==
LOC: ER 10-05 01:12 → MS 10-05 01:40
PROVIDERS: Internal Medicine; Nurse Practitioner Acute Care; Nurse Practitioner Family; Admitting Provider Family Medicine; Emergency Provider Student in an Organized Health Care Education/Training Program; PCP Nurse Practitioner; Visit Provider Family Medicine
DX: E87.5 Hyperkalemia (principal); I48.92 Unspecified atrial flutter; D62 Acute posthemorrhagic anemia; K62.5 Hemorrhage of anus and rectum; C18.7 Malignant neoplasm of sigmoid colon; Z95.2 Presence of prosthetic heart valve; E11.22 Type 2 diabetes mellitus with diabetic chronic kidney disease; N18.30 Chronic kidney disease, stage 3 unspecified; D63.1 Anemia in chronic kidney disease; Z79.82 Long term (current) use of aspirin; E11.319 Type 2 diabetes mellitus with unspecified diabetic retinopathy without macular edema; F32.9 Major depressive disorder, single episode, unspecified; M50.30 Other cervical disc degeneration, unspecified cervical region; I65.29 Occlusion and stenosis of unspecified carotid artery; I27.20 Pulmonary hypertension, unspecified; K21.9 Gastro-esophageal reflux disease without esophagitis; M15.9 Polyosteoarthritis, unspecified; G47.33 Obstructive sleep apnea (adult) (pediatric); H90.3 Sensorineural hearing loss, bilateral; I87.8 Other specified disorders of veins; I51.89 Other ill-defined heart diseases; R63.4 Abnormal weight loss; Z87.891 Personal history of nicotine dependence; J44.9 Chronic obstructive pulmonary disease, unspecified; I12.9 Hypertensive chronic kidney disease with stage 1 through stage 4 chronic kidney disease, or unspecified chronic kidney disease
CPT/HCPCS: 36415; 76770; 80048; 80053; 87493; 87505; 87635; 93005; 94640; 96361; 96365; 96372; 99222; 99239; 99252; 99285; 74176; 81003; 83036; 83540; 83550; 85014; 85018; 85025; 93010; G0378; J0610; J7042; J7613

== ENCOUNTER 2020-10-04 23:38 | Outpatient (REF) | payer MEDICARE, SELFPAY ==
[2020-10-04 20:46] LABS: Abs Immature Grans 0.03 10^3/uL (0.0-0.06); Absolute Basophil Count 0.04 10^3/uL (0.0-0.2); Absolute Eosinophil Count 0.85 10^3/uL (0.0-0.7); Absolute Lymphocyte Count 0.92 10^3/uL (1.2-3.4); Absolute Monocyte Count 0.61 10^3/uL (0.1-0.8); Absolute Neutrophil Count 7.14 10^3/uL (1.2-6.7); Basophils % 0.4; Eosinophils % 8.9; HCT 27.5 % (40.0-50.0); HGB 8.8 g/dL (13.5-17.5); Immature Grans % 0.3; Lymphocytes % 9.6; MCH 30.6 pg (27.0-33.0); MCV 95.5 fL (80-95); Monocytes % 6.4; Neutrophils % 74.4; Nucleated RBC 0 %; Platelet Count 150 10^3/uL (130-400); RBC 2.88 10^6/uL (4.36-5.78); RDW 15.8 % (11.8-14.1); RDW-SD 54.5 fL; WBC 9.59 10^3/uL (4.4-10.8)
[2020-10-04 20:55] LABS: Iron 37 ug/dL (65-175); Total Iron Binding Capacity 207 ug/dL (250-450); Transferrin Sat 18 % (20-55)
[2020-10-04 21:07] LABS: ALT 22 U/L (16-63); AST 17 U/L (15-37); Albumin 3.1 g/dL (3.4-5.0); Alkaline Phosphatase 88 U/L (46-116); Anion Gap 14.2 mmol/L (3-11); Bilirubin, Total 0.5 mg/dL (0.2-1.0); CO2 17.8 mmol/L (21.0-32.0); Calcium 8.6 mg/dL (8.5-10.1); Chloride 111 mmol/L (98-107); Estimated GFR 20.45 (mL/min/1.73m2); Glucose 125 mg/dL (74-106); Potassium 5.8 mmol/L (3.5-5.1); Sodium 143 mmol/L (136-145); Total Protein 6.1 g/dL (6.4-8.2)
[2020-10-04 21:14] LABS: BUN 100 mg/dL (7-18)
[2020-10-04 21:53] LABS: Diff Comment RBC Morph Reviewed; RBC Morphology Normal
== END 2020-10-04 23:39 | disposition home or self-care (01) ==
LOC: LBN 23:38
PROVIDERS: PCP Nurse Practitioner; Visit Provider Emergency Medicine
DX: K62.5 Hemorrhage of anus and rectum (principal); Z12.11 Encounter for screening for malignant neoplasm of colon
CPT/HCPCS: 80053; 83540; 83550; 85025

== ENCOUNTER 2021-06-22 20:21 | Outpatient (CLI) | payer MEDICARE, SELFPAY ==
--- NOTE | 2021-06-22 15:45 | DI.RAD_ITS ---
Exam(s) XR ABDOMEN FLAT UPRIGHT EXAM: 2D digital imaging was performed. CLINICAL HISTORY: abd pain colostomy concern obstruction, Z93.3, R10.9. COMPARISON: CT CT ABDOMEN PELVIS WO from 10/04/2020 TECHNIQUE: Supine and upright views of the abdomen was performed. FINDINGS: LUNG BASES: Scarring effusion and/or infiltrate in the right lung base. There is blunting of the lef t costophrenic angle which may represent scarring or effusion. BOWEL GAS PATTERN: Nondistended. No evidence of bowel obstruction. Small to moderate amount of retai noy stool. Colostomy in the left lower quadrant. FREE AIR: None. CALCIFICATIONS: No radiopaque calcifications. OSSEOUS STRUCTURES: Normal for age. OTHER FINDINGS: None. IMPRESSION: 1. No evidence of bowel obstruction. 2. [id number] amount of retained stool throughout the colon. 3. Right basilar effusion scarring and/or infiltrate. Chest x-ray may be considered for further eval uation. DATA REPOSITORY: RADIATION DOSE DELIVERED:
[2021-06-22 16:53] LABS: HCT 34.7 % (40.0-50.0); MCHC 31.7 % (32.0-36.0); MCV 97.7 fL (80-95); MPV 12.7 fL (8.0-11.0); RBC 3.55 10^6/uL (4.36-5.78); RDW 19.2 % (11.8-14.1); RDW-SD 68.4 fL; WBC 6.02 10^3/uL (4.4-10.8)
[2021-06-22 17:45] LABS: Anion Gap 7.1 mmol/L (3-11); BUN 50 mg/dL (7-18); CO2 27.9 mmol/L (21.0-32.0); CREATININE 2.4 mg/dL (0.70-1.30); Calcium 8.6 mg/dL (8.5-10.1); Chloride 105 mmol/L (98-107); Estimated GFR 26.38 (mL/min/1.73m2); Glucose 285 mg/dL (74-106); Potassium 4.5 mmol/L (3.5-5.1); Sodium 140 mmol/L (136-145)
[2021-06-22 17:50] LABS: Calculated LDL 50 mg/dL (<100); Cholesterol 87 mg/dL (<200); HDL Cholesterol 21 mg/dL (40-60); Potassium 4.4 mmol/L (3.5-5.1); Triglyceride 82 mg/dL (<150)
== END 2021-06-22 20:41 ==
PROVIDERS: PCP Nurse Practitioner; Visit Provider Nurse Practitioner
DX: E11.9 Type 2 diabetes mellitus without complications (principal); I10 Essential (primary) hypertension; N18.30 Chronic kidney disease, stage 3 unspecified; Z79.4 Long term (current) use of insulin; R10.9 Unspecified abdominal pain; R19.8 Other specified symptoms and signs involving the digestive system and abdomen; Z93.3 Colostomy status; R91.8 Other nonspecific abnormal finding of lung field
CPT/HCPCS: 36415; 80048; 80061; 85027; 74019; 83036; 84132